=== PATIENT | female | born 1940 | race Caucasian/White ===

== ENCOUNTER → 2018-09-03 | Outpatient (CLI) | payer OTHER ==
[~2018-09-03] VITALS: Ht 165.1 cm; Wt 63.5 kg
[~2018-09-03] MED LIST: ESTRADIOL 1 MG T1 M1 PO; FLUOXETINE HCL40 MG PO; FOLIC ACID1 MG PO; GABAPENTIN800 M1 PO; LISINOPRIL5 MG PO; METHOTREXATE 22.5 MG PO; MILK THISTLE87.5 MG PO; OXYCONTIN10 M1 PO; OXYCONTIN20 M1 PO; PROGESTERONE100 MG PO; SYNTHROID25 MC1 PO; VITAMIN C500 M1 PO; VITAMIN D2000 UNIT PO; XALATAN2.5 M1 OPHTHALMIC; XANAX 0.5 MG0.5 MG PO
[2018-09-03 13:05] VITALS: BP 153/101
--- NOTE | 2018-09-03 13:35 | NUR ---
Pain Clinic Assessment: 1. History of Osteoarthritis: YES History of Rheumatoid Arthritis: Not Applicable 2. Height: 5 ft. 5 in. 165.1 cm. Weight: 140.0 lb. oz. 63.504 kg. Patient's BMI: 23.3 3. Vital Signs: BP: 153/101 Pulse: 79 Resp: 14 Temp: 02 Sat: 98 ECG Mon: 4. Pain Intensity: 0 5. Fall Risk: Dizziness: N Needs help standing or walking: N Fallen in the last 3 months: Y Fall risk comments: 6. Patient on Blood Thinner: None 7. History of Hypertension: Y 8. Opioid Therapy greater than 6 weeks: Y Opiate Contract Signed: 09/03/18 9. Risk Assessment Tool Provided: /MOD 10. Functional Assessment Tool: 11. Recreational Drug Use: Never Drug Type: Tobacco Use: Current Some Day Smoker Tobacco Type: Cigarettes Amount or Packs/day: 2 CIGS OCC How Many Years: Alcohol Use: Yes Frequency: Daily Quant: 1
--- NOTE | 2018-09-09 15:29 | HPC ---
[facility] [address] [address] PAIN MANAGEMENT CONSULTATION Name: NICOLA ANGEL Room #: REG Aj Aramis.#: [id number] Admission: 09/03/18 ������������������ Attend Phys: Patrick Pavon MD Discharge: ������������������ Date of : 42 Report #: [id number] THIS REPORT FOR: //name// CC: [facility] physician/PCP Ivy Pavon DATE OF SERVICE: 09/03/2018 Followup visit for chronic low back pain, post-laminectomy syndrome with radiculopathy to the right leg. This is the first [facility] visit for the patient who I see typically at [facility]. I will be following her progress in our [facility] going forward. She has had a longstanding problem with chronic radiculopathy related to post-laminectomy syndrome. She underwent ultimately placement of a spinal cord stimulator, which did not provide the hope for relief. We have since reverted back to medication management and she is doing well. She is now 77 years of age. 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 She also is an avid sourcing manager. She has found that the medication allows her to be more physical and active and I believe that this also then contributes to her improvement in pain. All medications reviewed and reconciled. For her, I provide medications OxyContin 10 mg once daily and that is taken at noon around and OxyContin 20 mg morning and evening for a total of 50 oxycodone milligrams per day. This equates to an MME of 75. She denies any side effects. She is obviously physically active and grateful for the pain relief that allows her to be so active. She attributes this to her medication and appropriate dosing. She understands the seriousness of the opioid crisis in [facility] and safeguards her medication. She continues to smoke. I counseled her about that today. She has completed an opioid agreement and we reviewed the terms of that agreement. She is at low risk for addiction to moderate with a score of 4/10. She has fallen once in the last 3 months, but would not be considered really a fall risk. It was not a medication or blood pressure related fall. She has some generalized osteoarthritis involving hips, knees and shoulders. PHYSICAL EXAMINATION: She is an attractive 77-year-old, looks younger than her stated age. Her blood pressure is 153/101, heart rate is 79, respirations 14, O2 sat is 98. She is 5 feet 5 inches with a BMI of 23.3. [place] [address] PAIN MANAGEMENT CONSULTATION Name: NICOLA ANGEL Room #: REG [facility] Jorge.#: [id number] Admission: 09/03/18 ������������������ Attend Phys: Patrick Pavon MD Discharge: ������������������ Date of : 42 Report #: [id number] independently from sitting to standing. There is no antalgic feature. No weakness, noted to her gait. There is tenderness across her scar in the back and she has some limited range of motion, but otherwise is doing well. She scores her pain intensity is 0/10. IMPRESSION: 1. Chronic intractable low back pain, post-laminectomy syndrome. 2. Failure of spinal cord stimulation therapy. 3. Management of high risk medications under terms of an opioid agreement. 4. Osteoarthritis, status post bilateral hip replacement. RECOMMENDATIONS: I will continue medication under terms of our written agreement. She will carefully safeguard her medications. I have checked her use of medication into the prescription drug monitoring program and there are no unexpected entries. Followup visit planned in 3 months. ��������������������������������������������� <ELECTRONICALLY SIGNED> ���������������������������������������� By: Patrick Pavon MD ��������������������������������������������� 09/09/18 1529 [id number] Patrick Pavon MD /nt
== END ==
LOC: PAIN 06:50
DX: M54.16 Radiculopathy, lumbar region (principal); M96.1 Postlaminectomy syndrome, not elsewhere classified; G89.4 Chronic pain syndrome; M19.90 Unspecified osteoarthritis, unspecified site; Z96.643 Presence of artificial hip joint, bilateral; Z79.891 Long term (current) use of opiate analgesic

== ENCOUNTER → 2018-09-28 | Outpatient (CLI) | payer OTHER ==
[~2018-09-28] VITALS: Ht 165.1 cm; Wt 65.3 kg
--- NOTE | ~2018-09-28 | HPC ---
[facility] [address] [place] [address] PAIN MANAGEMENT CONSULTATION Name: NICOLA ANGEL Room #: REG MCA PatelDinesh#: [id number] Admission: 09/28/18 ������������������ Attend Phys: Patrick Pavon MD Discharge: ������������������ Date of : 42 Report #: [id number] THIS REPORT FOR: //name// CC: [facility] physician/PCP Patrick Pavon DATE OF SERVICE: 09/28/2018 CHIEF COMPLAINT: New onset left sacral pain after a fall. Two and a half weeks ago, the patient fell. She landed directly on her sacrum. She has been in severe pain ever since. She had a plain film x-ray at her physician's office, which did not show fracture. She called me over the weekend in tears asking if she could work her way into the clinic. I agree to see her today. PHYSICAL EXAMINATION: She is in tears. She is lying on her side. She cannot sit up or lay directly on her sacrum. Her blood pressure 128/87, heart rate 72, respirations 16. She has tenderness located directly over the mid sacrum. She has no leg pain at this time. X-RAY PERFORMED: A CAT scan of the sacrum without contrast. X-ray was completed during her office visit and it showed an acute minimally displaced mid sacral fracture. Bilateral hip replacements are noted as well as extensive degenerative surgical changes in the lumbar spine. IMPRESSION: Sacral fracture, acute. I reviewed the films myself. This is on the anterior table. It should heal nicely and should require no intervention. Pain management as well as all those needed in reassurance the patient that she is experiencing expected pain as a result of her fracture. A caudal epidural injection of bupivacaine was provided for her today for pain relief before discharge. She can continue on medication as she has provided chronic medication under terms of written opioid agreement at relatively high dose OxyContin 20 mg b.i.d. and she has OxyContin 10 mg also utilized midday. Our goal has been to reduce that medication and we will do so after she continues to improve from her sacral fracture. PROCEDURE: Caudal epidural injection. She was taken to fluoroscopic suite. She was placed prone, skin prepped with ChloraPrep. Skin anesthetized over the sacral hiatus. A 22-gauge Tuohy epidural needle was advanced into the sacral hiatus and caudal canal. 0.25 mL of Omnipaque was injected demonstrating an epidurogram in the epidural space extending along the area of her fracture. I then followed it with 1.[address] mL [address] [address] PAIN MANAGEMENT CONSULTATION Name: NICOLA ANGEL Room #: REG [facility]#: [id number] Admission: 09/28/18 ������������������ Attend Phys: Patrick Pavon MD Discharge: ������������������ Date of : 42 Report #: [id number] 0.5% bupivacaine deposited directly in the area of the fracture. She was able to sit in recovery room recliner, reported that her pain score was 0 at discharge. Followup visit planned as needed. We will continue to manage her medications. ��������������������������������������������� ���������������������������������������� By: ��������������������������������������������� 1812 1207 Patrick Pavon MD /nt
[2018-09-28 09:09] VITALS: BP 128/87
--- NOTE | 2018-09-28 09:20 | NUR ---
Pain Clinic Assessment: 1. History of Osteoarthritis: YES History of Rheumatoid Arthritis: Not Applicable 2. Height: 5 ft. 5 in. 165.1 cm. Weight: 144.0 lb. oz. 65.318 kg. Patient's BMI: 24.0 3. Vital Signs: BP: 128/87 Pulse: 72 Resp: 16 Temp: 02 Sat: 99 ECG Mon: 4. Pain Intensity: 8-9 5. Fall Risk: Dizziness: N Needs help standing or walking: Y Fallen in the last 3 months: N Fall risk comments: 6. Patient on Blood Thinner: None 7. History of Hypertension: Y 8. Opioid Therapy greater than 6 weeks: Y Opiate Contract Signed: 09/03/18 9. Risk Assessment Tool Provided: / 10. Functional Assessment Tool: 11. Recreational Drug Use: Never Drug Type: Tobacco Use: Current Some Day Smoker Tobacco Type: Cigarettes Amount or Packs/day: 1/2 How Many Years: 54 Alcohol Use: Yes Frequency: Quant:
== END | disposition home or self-care (01) ==
LOC: PAIN 08:30 → CAT 08:30
DX: S32.10XA Unspecified fracture of sacrum, initial encounter for closed fracture (principal); X58.XXXA Exposure to other specified factors, initial encounter; Y93.9 Activity, unspecified; Y92.89 Other specified places as the place of occurrence of the external cause; Y99.9 Unspecified external cause status; M54.5 Low back pain; G31.89 Other specified degenerative diseases of nervous system

== ENCOUNTER → 2019-01-11 | Outpatient (CLI) | payer OTHER ==
[~2019-01-11] VITALS: Ht 165.1 cm; Wt 61.6 kg
[2019-01-11 11:01] VITALS: BP 105/69
--- NOTE | 2019-01-11 11:22 | NUR ---
Pain Clinic Assessment: 1. History of Osteoarthritis: YES History of Rheumatoid Arthritis: Not Applicable 2. Height: 5 ft. 5 in. 165.1 cm. Weight: 135.8 lb. oz. 61.598 kg. Patient's BMI: 22.6 3. Vital Signs: BP: 105/69 Pulse: 85 Resp: 14 Temp: 02 Sat: 100 ECG Mon: 4. Pain Intensity: 0 5. Fall Risk: Dizziness: N Needs help standing or walking: N Fallen in the last 3 months: Y Fall risk comments: 6. Patient on Blood Thinner: None 7. History of Hypertension: Y 8. Opioid Therapy greater than 6 weeks: Y Opiate Contract Signed: 09/03/18 9. Risk Assessment Tool Provided: 10. Functional Assessment Tool: 11. Recreational Drug Use: Never Drug Type: Tobacco Use: Current Every Day Smoker Tobacco Type: Cigarettes Amount or Packs/day: 0.5 How Many Years: 50 Alcohol Use: Yes Frequency: Daily Quant: WINE ONE A DAY
--- NOTE | 2019-01-12 13:33 | HPC ---
[facility] [address] [place] [address] PAIN MANAGEMENT CONSULTATION Name: NICOLA ANGEL [facility] [id number] Admission: 01/11/19 ������������������ Attend Phys: Deyanira Cummings Discharge: ������������������ Date of : 42 Report #: [id number] THIS REPORT FOR: //name// CC: Deyanira Cummings [facility] physician/PCP DATE OF SERVICE: 01/11/2019 CHIEF COMPLAINT: Sacral pain, chronic low back pain, post-laminectomy syndrome. HISTORY OF PRESENT ILLNESS: This is a very pleasant 78-year-old female, who returns to the pain clinic today for refill of her medications that she uses to take for her ongoing low back pain. She informs me that her pain score is 0 today out of 10. Her pain that she does experience before she takes her medications is across her lower back. She feels that her sacral pain from her recent fracture has healed and is recovering. She tells me she has worse pain when she is bending or changing positions from sitting to standing and walking, though her pain medication greatly improves her quality of life and her activities. She tells me some days she is not needing her OxyContin 10 mg in the middle of the day. She is able to get by with OxyContin 20 mg b.i.d. She does have some problems with constipation, associated with her pain pills. ALLERGIES: CODEINE and FENTANYL. LIST OF MEDICATIONS: Gabapentin 800 mg 4 times a day, OxyContin 20 mg b.i.d., OxyContin 10 mg at noontime, vitamin D, vitamin C, milk thistle, Xanax 0.5 mg daily, Synthroid 25 mcg daily, Paxil 40 mg daily, methotrexate weekly, folic acid, lisinopril 5 mg daily, progesterone, estradiol 3 times a week and Xalatan eyedrops. PQRS: 1. She has history of osteoarthritis as well as rheumatoid arthritis. 2. Height is 5 feet 5 inches, weight is 133, BMI is 22. 3. Vital signs, BP 105/69, pulse is 85, respirations 14, oxygen sat is 100, pain score 0. 4. Fall risk. Denies dizziness, does not need help walking or standing, has fallen in the last 3 months. 5. The patient is not on any blood thinners, does take medicine for hypertension. 6. Opioid therapy is greater than 6 weeks; therefore, an opioid signed contract is on the chart. Her risk assessment is moderate. Her functional assessment is 0/70. 7. Recreational drug use, she denies. She is a current smoker about half a pack of cigarettes a day and she does have alcoholic beverages one drink a day. According to the prescription monitoring system, the patient is filling [address] [address] PAIN MANAGEMENT CONSULTATION Name: MARIO ALBERTOBrandonNICOLA Room #: REG MAC Juarez#: [id number] Admission: 01/11/19 ������������������ Attend Phys: Deyanira Cummings Discharge: ������������������ Date of : 42 Report #: [id number] appropriately for her medications and is due to fill those today. PHYSICAL EXAMINATION: GENERAL: This is alert and orientated 78-year-old female who appears her stated age, placing her current pain score today at 0. HEENT: Normocephalic, atraumatic. Extraocular eye muscles are intact. Mucous membranes are moist. MUSCULOSKELETAL: The patient is able to move from sitting to standing independently. She has no antalgic features. She has tenderness across her lumbar spine and has limited range of motion due to previous surgeries. Her lower extremity strength judged to be 5/5 bilaterally. IMPRESSION: 1. Chronic intractable low back pain, post-laminectomy syndrome. 2. Failure spinal cord stimulator therapy. 3. Osteoarthritis. 4. Status post bilateral hip replacement. 5. Rheumatoid arthritis. 6. Management of high risk medications under terms of written opioid agreement. 7. Recent sacral fracture. We reviewed the fact that opiate medications are being used to provide analgesia adequate to support activities of daily living, not attempting to achieve a specific pain score on the 0-10 Visual Analog Scale. The current opiate medications are providing sufficient analgesia to allow the patient to participate in activities of daily living. The patient is not exhibiting any aberrant behavior suggestive of drug diversion. The patient is not having any adverse reactions to medications. The patient is not suffering from daytime somnolence or mental acuity changes. The patient is managing opiate-induced constipation with appropriate [id number] agents and dietary considerations. The patient was counseled on concern for caution with operating a motor vehicle while using opiate medications. A physical exam was performed and the patient's functional status was evaluated. All patients with back pain were advised against the bed rest greater than 4 days and were advised to return to normal activities. Pain score assessment was noted and the treatment plan was reviewed with the patient. All current medications, both prescribed and OTC were reviewed and reconciled on the electronic medical record. Tobacco screening was accomplished and smoking cessation was advised when indicated. BMI was noted and diet/exercise modification was recommended for all patients following outside normal parameters. I reviewed with the patient today their responsibilities to safeguard prescription medications, reviewed their responsibility to utilize medications only as prescribed by the physician. They are to seek and receive pain [address] [address] PAIN MANAGEMENT CONSULTATION Name: NICOLA ANGEL [id number] Admission: 01/11/19 ������������������ Attend Phys: Deyanira Cummings Discharge: ������������������ Date of : 42 Report #: [id number] medications only from 1 physician group ( [facility]). They are to use 1 pharmacy and keep the clinic informed if they change pharmacies. Their responsibilities include making followup visits in a timely fashion and to avoid abrupt discontinuation of medication usage. Their responsibilities further include bringing their medications (bottles from the pharmacy with residual pills) to the visit for possible confirmation of pill counts and the patient understands it is their responsibility to submit to random drug screens to ensure both that the medications prescribed are present, and that no other controlled substances are present. All prescriptions provided today were generated electronically. PLAN: 1. We discussed treatment options with the patient today. The patient tells me she is doing quite well on her current medication regimen, in fact sometimes she does not require her OxyContin 10 mg tablets at noon time and does have several left over from previous prescriptions; therefore, it was decided that we would give her 2 prescriptions of the 10 mg OxyContin. The patient instructed to take the lowest most effective dose, so; therefore, #30 prescription given for today and 8-week release. If the patient finds that she is not needing this on a daily basis, she is to bring back the remainder script and we will discard it. 2. OxyContin 20 mg, #60 given for today, 4-week and 8-week release. 3. The patient was telling me that she does have problems with constipation. She had taken MiraLax in the past that did cause some diarrhea if she takes it every day as well as Senokot. Recently she has tried Ex-Lax, encouraged her to drink plenty of liquids when taking stool softeners or to try the stool softener every other day and by increasing her liquid intake, she may not need a stool softener daily. The patient verbalizes understanding and will try these different techniques. 4. We will call the pharmacy, [facility], to change her directions for her gabapentin. She does take this 800 mg 4 times a day. They are giving her at 3 times a day. 5. The patient is seen in collaboration today with Dr. Patrick Pavon who collaborated care. ��������������������������������������������� <ELECTRONICALLY SIGNED> ���������������������������������������� By: Deyanira Cummings ��������������������������������������������� 01/12/19 1333 1321 [id number] Deyanira Cummings /nt
== END ==
LOC: PAIN 06:54
DX: S32.10XA Unspecified fracture of sacrum, initial encounter for closed fracture (principal); M54.5 Low back pain; M96.1 Postlaminectomy syndrome, not elsewhere classified; M19.90 Unspecified osteoarthritis, unspecified site; Z96.643 Presence of artificial hip joint, bilateral; Z79.891 Long term (current) use of opiate analgesic; X58.XXXA Exposure to other specified factors, initial encounter; Y93.89 Activity, other specified; Y92.89 Other specified places as the place of occurrence of the external cause; Y99.8 Other external cause status

== ENCOUNTER → 2019-04-29 | Outpatient (CLI) | payer OTHER ==
[~2019-04-29] MED LIST changes: +MEDROLDOSEPACK PO
--- NOTE | 2019-04-29 13:57 | NUR ---
Pain Clinic Assessment: 1. History of Osteoarthritis: B/L HANDS B/L ANKLES B/L HIPS SPINE History of Rheumatoid Arthritis: Not Applicable 2. Height: ft. in. cm. Weight: lb. oz. kg. Patient's BMI: 3. Vital Signs: BP: Pulse: Resp: Temp: 02 Sat: ECG Mon: 4. Pain Intensity: 4-5 5. Fall Risk: Dizziness: N Needs help standing or walking: N Fallen in the last 3 months: N Fall risk comments: 6. Patient on Blood Thinner: None 7. History of Hypertension: Y 8. Opioid Therapy greater than 6 weeks: Y Opiate Contract Signed: 09/03/18 9. Risk Assessment Tool Provided: 10. Functional Assessment Tool: 11. Recreational Drug Use: Never Drug Type: Tobacco Use: Current Every Day Smoker Tobacco Type: Cigarettes Amount or Packs/day: 1 PACK How Many Years: Alcohol Use: Yes Frequency: Daily Quant: 1 DRINK
--- NOTE | 2019-04-30 12:32 | HPC ---
[facility] [address] [place] [address] PAIN MANAGEMENT CONSULTATION Name: NICOLA ANGEL Room #: REG Aj DineshDinesh#: [id number] Admission: 04/29/19 Attend Phys: Deyanira Cummings Discharge: Date of : 44 Report #: [id number] THIS REPORT FOR: //name// CC: Deyanira Cummings [facility] physician/PCP Patrick Pavon MD DATE OF SERVICE: 04/29/2019 CHIEF COMPLAINT: Chronic low back pain, post-laminectomy syndrome, left radiculopathy, left lumbar radiculopathy. HISTORY OF PRESENT ILLNESS: This is a very pleasant 78-year-old female, who returns to the pain clinic today for refill of her medications, though she does report she was working in her yard about 3 weeks ago and has had ongoing low back radicular pain into her left buttock, occasionally it does go into her left posterior leg to her foot very rarely into her right buttock. She has tried heat and ice with no relief. She had tapered down her OxyContin to 20 mg b.i.d. From her previous dose, she did increase this medication taking 10 mg in the midday though that was not beneficial, so she has since stopped that midday dose again. She is wondering about a possible epidural, which has been very beneficial in helping her relieve pain in the past from Dr. Patrick Pavon. The patient does report her pain score is 4-5 today. It is a constant, shooting, throbbing pain that is worse with any activity, even lying down. Her medications have been somewhat beneficial in controlling some of her pain. ALLERGIES: CODEINE AND FENTANYL. CURRENT LIST OF MEDICINES: OxyContin 20 mg b.i.d., vitamin D, vitamin C, gabapentin 800 q.i.d., milk thistle, Xanax 0.5 mg daily, Synthroid 25 mcg daily, Prozac 40 mg daily, methotrexate 2.5 mg weekly, folic acid daily, Zestril 5 mg daily, progesterone 100 mg daily, Estrace 1 mg weekly. PQRS: 1. She has osteoarthritic changes in her hands, ankle, spine and is being treated for differential arthritis. 2. Height is 5 feet 5 inches, weight is 133, BMI is 22. 3. Vital signs unsure. Pain is 4/5. 4. Fall risk. Denies dizziness, does not need help walking or standing, has not fallen in the last 3 months. 5. The patient is not on any blood thinners, but does take medicine for hypertension. 6. Opioid therapy is greater than 6 weeks; therefore, an opioid signed contract is on the chart. 7. Her risk assessment is moderate. 8. Functional assessment is 0/70. [address] [address] PAIN MANAGEMENT CONSULTATION Name: NICOLA ANGEL Danial Room #: REG CLAj Juarez#: [id number] Admission: 04/29/19 Attend Phys: Deyanira Cummings Discharge: Date of : 42 Report #: [id number] 9. Recreational drug use, she denies. She is a current smoker of 1 pack of cigarettes a day and occasionally drinks alcohol. According to the prescription monitoring system, the patient is filling appropriately for her medications. She does safeguard her meds at all times. PHYSICAL EXAMINATION: GENERAL: This is an alert and orientated 78-year-old female who appears her stated age, placing her current pain score at 4-5/10. She is a good historian. HEENT: Normocephalic, atraumatic. Extraocular eye muscles are intact. Mucous membranes are moist. MUSCULOSKELETAL: The patient is able to move from sitting to standing position independently, though slowly due to pain. She is walking with a slightly antalgic gait today. She has tenderness in her lumbar spine that is radiating into her left buttock down the posterior left leg following the L5-S1 dermatomal distribution with occasional shooting, throbbing pain. Lower extremity strength judged to be 5/5 in all major muscle groups. IMPRESSION: 1. Lumbar radiculopathy following the L5-S1 dermatomal distribution. 2. Chronic intractable low back pain, post-laminectomy syndrome. 3. Failure of spinal cord stimulator therapy. 4. Osteoarthritis. 5. Status post bilateral hip replacement. 6. Differential arthritis. 7. Management of high risk medications under terms of written opioid agreement. We reviewed the fact that opiate medications are being used to provide analgesia adequate to support activities of daily living, not attempting to achieve a specific pain score on the 0-10 Visual Analog Scale. The current opiate medications are providing sufficient analgesia to allow the patient to participate in activities of daily living. The patient is not exhibiting any aberrant behavior suggestive of drug diversion. The patient is not having any adverse reactions to medications. The patient is not suffering from daytime somnolence or mental acuity changes. The patient is managing opiate-induced constipation with appropriate [id number] agents and dietary considerations. The patient was counseled on concern for caution with operating a motor vehicle while using opiate medications. A physical exam was performed and the patient's functional status was evaluated. All patients with back pain were advised against the bed rest greater than 4 days and were advised to return to normal activities. Pain score assessment was noted and the treatment plan was reviewed with the patient. All current medications, both prescribed and OTC were reviewed and reconciled on the electronic medical record. Tobacco screening was accomplished and smoking cessation was advised when indicated. BMI was noted and diet/exercise [facility] [address] [place] [address] PAIN MANAGEMENT CONSULTATION Name: NICOLA ANGEL [id number] Admission: 04/29/19 Attend Phys: Deyanira Cummings Discharge: Date of : 42 Report #: [id number] modification was recommended for all patients following outside normal parameters. I reviewed with the patient today their responsibilities to safeguard prescription medications, reviewed their responsibility to utilize medications only as prescribed by the physician. They are to seek and receive pain medications only from 1 physician group ( [facility]). They are to use 1 pharmacy and keep the clinic informed if they change pharmacies. Their responsibilities include making followup visits in a timely fashion and to avoid abrupt discontinuation of medication usage. Their responsibilities further include bringing their medications (bottles from the pharmacy with residual pills) to the visit for possible confirmation of pill counts and the patient understands it is their responsibility to submit to random drug screens to ensure both that the medications prescribed are present, and that no other controlled substances are present. All prescriptions provided today were generated electronically. PLAN: 1. We discussed treatment options with the patient today. I believe that a lumbar epidural steroid injection may benefit this patient due to her recent injury from gardening with her radicular symptoms. Unfortunately, Dr. Pavon is not available to perform this until 05/10/2019. Since the patient is having increased significant pain, I will offer her a Medrol Dosepak to take until that time to see if that is beneficial in reducing some of her pain. The patient verbalizes understanding. She will take it as directed and we will make an appointment for an epidural if it is not beneficial. 2. The patient was able to wean down off her OxyContin 10 mg midday dose taking it only 20 mg b.i.d. We will continue her at that current level of medicine, this is 60 morphine mEq according to the CDC guidelines. We transmitted 60 pills of OxyContin 20mg to the [facility] pharmacy for today 4-week and 8-week release. 3. The patient does continue on gabapentin that she gets that through [facility]. She is not needing refills of that medicine today. 4. The patient is seen in collaboration with Dr. Patrick Pavon who did see the patient as well. The patient will return for a lumbar epidural steroid injection on 05/10/2019. <ELECTRONICALLY SIGNED> By: Deyanira Cmumings 04/30/19 1232 [id number] Deyanira Cummings /joseph
== END ==
LOC: PAIN 07:03
DX: M96.1 Postlaminectomy syndrome, not elsewhere classified (principal); M54.16 Radiculopathy, lumbar region; M19.90 Unspecified osteoarthritis, unspecified site; Z96.643 Presence of artificial hip joint, bilateral; Z79.891 Long term (current) use of opiate analgesic

== ENCOUNTER → 2019-05-10 | Outpatient (CLI) | payer OTHER ==
[~2019-05-10] VITALS: Ht 165.1 cm; Wt 64.3 kg
[~2019-05-10] MED LIST changes: +ZANAFLEX4 M2 PO
[2019-05-10 15:20] VITALS: BP 111/76
--- NOTE | 2019-05-10 15:47 | NUR ---
Pain Clinic Assessment: 1. History of Osteoarthritis: B/L HANDS B/L ANKLES B/L HIPS SPINE History of Rheumatoid Arthritis: Not Applicable 2. Height: 5 ft. 5 in. 165.1 cm. Weight: 141.8 lb. oz. 64.320 kg. Patient's BMI: 23.6 3. Vital Signs: BP: 111/76 Pulse: 95 Resp: 14 Temp: 02 Sat: 100 ECG Mon: 4. Pain Intensity: 10 5. Fall Risk: Dizziness: N Needs help standing or walking: Y Fallen in the last 3 months: Y Fall risk comments: 6. Patient on Blood Thinner: None 7. History of Hypertension: Y 8. Opioid Therapy greater than 6 weeks: Y Opiate Contract Signed: 09/03/18 9. Risk Assessment Tool Provided: 4/ 10. Functional Assessment Tool: 11. Recreational Drug Use: Never Drug Type: Tobacco Use: Current Every Day Smoker Tobacco Type: Amount or Packs/day: 1/2 How Many Years: 50 Alcohol Use: Yes Frequency: Quant:
== END | disposition home or self-care (01) ==
LOC: PAIN 06:57
DX: M54.16 Radiculopathy, lumbar region (principal); M96.1 Postlaminectomy syndrome, not elsewhere classified; G89.29 Other chronic pain; F17.210 Nicotine dependence, cigarettes, uncomplicated; Z98.890 Other specified postprocedural states; Z79.891 Long term (current) use of opiate analgesic; Z79.899 Other long term (current) drug therapy; Z88.8 Allergy status to other drugs, medicaments and biological substances

== ENCOUNTER → 2019-05-20 | Outpatient (CLI) | payer OTHER ==
[~2019-05-20] VITALS: Ht 165.1 cm; Wt 62.6 kg
[~2019-05-20] MED LIST changes: +HYDROCODON-ACE1 EAC7 PO; +MS CONTIN30 MG PO
[2019-05-20 11:06] VITALS: BP 136/90
--- NOTE | 2019-05-20 11:19 | NUR ---
Pain Clinic Assessment: 1. History of Osteoarthritis: B/L HANDS B/L ANKLES B/L HIPS SPINE History of Rheumatoid Arthritis: Not Applicable 2. Height: 5 ft. 5 in. 165.1 cm. Weight: 138.0 lb. oz. 62.596 kg. Patient's BMI: 23.0 3. Vital Signs: BP: 136/90 Pulse: 82 Resp: 16 Temp: 02 Sat: 97 ECG Mon: 4. Pain Intensity: 10 5. Fall Risk: Dizziness: N Needs help standing or walking: Y Fallen in the last 3 months: N Fall risk comments: 6. Patient on Blood Thinner: None 7. History of Hypertension: Y 8. Opioid Therapy greater than 6 weeks: Y Opiate Contract Signed: 09/03/18 9. Risk Assessment Tool Provided: 4/ 10. Functional Assessment Tool: 11. Recreational Drug Use: Never Drug Type: Tobacco Use: Current Every Day Smoker Tobacco Type: Cigarettes Amount or Packs/day: 0.5 How Many Years: 50 Alcohol Use: Yes Frequency: Daily Quant: WINE 1 A DAY VODKA ALSO
--- NOTE | 2019-05-21 09:23 | HPC ---
[facility] [place] [address] PAIN MANAGEMENT CONSULTATION Name: NICOLA ANGEL Room #: REG Aj Larry#: [id number] Admission: 05/20/19 Attend Phys: Deyanira Cummings Discharge: Date of : 44 Report #: [id number] THIS REPORT FOR: //name// CC: Deyanira Pavon MD DATE OF SERVICE: 05/20/2019 CHIEF COMPLAINT: Chronic low back pain, post-laminectomy syndrome, lumbar radiculopathy. HISTORY OF PRESENT ILLNESS: The patient returns today for a visit to discuss medication management. She recently had an epidural steroid injection from Dr. Patrick Pavon on 04/29/2019. She reports that her pain has been increased significantly since that time, rating it at 10/10, is located in her lower back that radiates down her bilateral legs and buttocks following the L5-S1 dermatomal distribution. She reports that she had increased her OxyContin use back to 20 mg b.i.d. and taking 10 mg in the middle of the day that she had at home from previous use and that has been non-beneficial as well. The patient is here to discuss possible opioid rotation or other options that we may have to offer her. She is seeing her surgeon Dr. Vanegas next week. In the meantime, she reports that she is having a significant time walking with this pain. She is also suffering from some constipation. She uses Metamucil for this. ALLERGIES: CODEINE AND FENTANYL. CURRENT LIST OF MEDICATIONS: Tizanidine p.r.n., OxyContin 20 mg b.i.d., OxyContin 10 in the day, gabapentin 800 mg q.i.d., vitamin D, vitamin C, milk thistle extract, Xanax, Synthroid, fluoxetine, methotrexate, folic acid, lisinopril, progesterone, estradiol. PQRS: 1. The patient has arthritic changes in her hands, ankle, spine and also being treated for differential rheumatoid arthritis, on methotrexate. 2. Height is 5 feet 5 inches, weight is 138, BMI is 23. 3. Vital signs 136/90, pulse is 82, respirations 16, oxygen sat is 97. 4. Pain score is 10/10. 5. Denies dizziness. Does need help walking. She is in a wheelchair today, has not fallen in the last 3 months. 6. The patient is not on any blood thinners, but does take medicine for hypertension. 7. Opioid therapy is greater than 6 weeks; therefore, an opioid signed contract is on the chart. Her risk assessment is moderate. Functional assessment 66/70. 8. Recreational drug use, she denies. She is [place] [address] PAIN MANAGEMENT CONSULTATION Name: NICOLA ANGEL Danial Room #: REG MAC Juarez#: [id number] Admission: 05/20/19 Attend Phys: Deyanira Cummings Discharge: Date of : 42 Report #: [id number] pack a day and also drinks wine and vodka nightly. According to the prescription monitoring system, the patient filled her OxyContin a week and a half ago when she was previously here. PHYSICAL EXAMINATION: GENERAL: This is alert and orientated female who appears her stated age, placing her current pain score at 10/10. HEENT: Normocephalic, atraumatic. Extraocular eye muscles are intact. Mucous membranes are moist. ABDOMEN: Slight tenderness. Bowel sounds present. MUSCULOSKELETAL: Bilateral positive straight raising test. She has pain from her lumbosacral area that radiates down her L5-S1 dermatomal distribution following the L5-S1 dermatomal distribution greater on the left leg. Lower extremity strength judged to be 5/5 in all major muscle groups. She has difficulty walking, which elicits increased pain in a wheelchair presently today. IMPRESSION: 1. Lumbar radiculopathy following the L5-S1 dermatomal distribution. 2. Chronic intractable low back pain, post-laminectomy syndrome. 3. Failure of spinal cord stimulator therapy. 4. Osteoarthritis. 5. Status post bilateral hip replacements. 6. Differential arthritis. 7. Management of high risk medications under terms of written opioid agreement. PLAN: 1. We discussed treatment options with the patient today. The patient has found the caudal epidural that Dr. Patrick Pavon performed a week and a half ago not beneficial in controlling any of her pain. She has not gone to the Emergency Room but made an appointment for us to see her today. We discussed current regimen of medications and have suggested opiate rotation to see if this better helps her pain. The patient verbalizes understanding and is willing to try. 2. Scripts given today for MS Contin 30 mg b.i.d., quantity 60 and hydrocodone 5/325, #90. This will place the patient at 75 morphine mEq a day, a slight increase from her OxyContin 20 mg b.i.d. 3. The patient encouraged to use heat and ice and alternating those to see if those are beneficial as well. 4. The patient encouraged to decrease her smoking. She recently has increased her usage. We did discuss how that affects her pain. The patient will try to decrease her smoking habit. 5. The patient is going to follow up with Dr. Vanegas next week, she will call to report his findings with her. 6. Appointment made for followup for 06/17/2018 for 1 month of these [facility] [place] [address] [address] PAIN MANAGEMENT CONSULTATION Name: NICOLA ANGEL Room #: REG CL Larry#: [id number] Admission: 05/20/19 Attend Phys: Deyanira Cummings Discharge: Date of : 44 Report #: [id number] medications. We did void her OxyContin prescriptions at the pharmacy. The patient is seen today in collaboration with Dr. Patrick Pavon. <ELECTRONICALLY SIGNED> By: Deyanira Cummings 05/21/19 0923 1235 [id number] Deyanira Cummings /nt
== END ==
LOC: PAIN 06:54
DX: M96.1 Postlaminectomy syndrome, not elsewhere classified (principal); M54.16 Radiculopathy, lumbar region; M19.90 Unspecified osteoarthritis, unspecified site; Z79.899 Other long term (current) drug therapy

== ENCOUNTER → 2019-06-17 | Outpatient (CLI) | payer OTHER ==
[~2019-06-17] VITALS: Ht 165.1 cm; Wt 60.3 kg
[~2019-06-17] MED LIST changes: +NARCAN4 MG NARES
[2019-06-17 11:25] VITALS: BP 114/75
--- NOTE | 2019-06-18 07:28 | HPC ---
[facility] [address] [place] [address] PAIN MANAGEMENT CONSULTATION Name: NICOLA ANGEL [facility]: [facility] [id number] Admission: 06/17/19 Attend Phys: Deyanira Cummings Discharge: Date of : 44 Report #: [id number] THIS REPORT FOR: //name// CC: Deyanira Pavon MD DATE OF SERVICE: 06/17/2019 CHIEF COMPLAINT: Chronic low back pain, post-laminectomy syndrome, lumbar radiculopathy. HISTORY OF PRESENT ILLNESS: The patient returns with her today to discuss a recent hospitalization at [facility]. The patient reports that she was having a very bad painful day, had seen her surgeon, Dr. Hendrix and had several x-rays done. When she got home, she was in significant amount of pain as well as having a panic attack, she did take a Xanax, then per her 's report, he saw her take two more Xanax. The patient laid down. Per the 's report, he went to check on her several hours later, the patient had vomitted and was difficult to arouse. He did call the EMS. She was taken to [facility], was on the ventilator for 4 days. He believes it was an overdose of her Xanax. The patient tells me she cannot remember any of this. She then went to a rehab facility for her hospitalization; it was not a substance abuse rehabilitation. The patient was discharged on the and has been at home taking her prescribed medication of MS Contin 30 mg twice a day as well as Xanax 0.5 mg, the patient reports 2 tablets total since this hospitalization of Xanax. She is here today to discuss pain management options. Per her report, she is having no pain when she is sitting, but her pain is a 4/10 when she is walking. She reports she is trying to avoid surgery and would like to start physical therapy as she feels like she is very weak in her legs since this hospitalization. She continues to have low back pain and bilateral leg pain. The patient reports that she has had less panic attacks since she was hospitalized. She has also quit smoking since she was in the hospital. She is wearing a Nicoderm patch currently. She believes she has about two weeks' left of medications at home. ALLERGIES: CODEINE AND FENTANYL. CURRENT LIST OF MEDICATIONS: Hydrocodone 5/325, MS Contin 30 mg b.i.d., Zanaflex, gabapentin, vitamin D, vitamin C, milk thistle extract, Xanax 0.5-1 mg daily, Synthroid, fluoxetine, methotrexate, folic acid, progesterone, estradiol. [address] [address] PAIN MANAGEMENT CONSULTATION Name: NICOLA ANGEL Danial Room #: REG CLAj Juarez#: [id number] Admission: 06/17/19 Attend Phys: Deyanira Cummings Discharge: Date of : 44 Report #: [id number] PQRS: 1. She has arthritic changes in her hands, ankle, spine and also being treated for differential rheumatoid arthritis, on methotrexate. 2. Height is 5 feet 5 inches, weight is 133, BMI is 22. 3. Vital signs 114/75, pulse is 105, respirations 15, oxygen sat is 97. 4. Pain score is 0-4. 5. Denies dizziness. Does need help walking. She is in a wheelchair presently today. 6. The patient is not on any blood thinners, but does take medicine for hypertension. 7. Opioid therapy is greater than 6 weeks; therefore, an opioid signed contract is on the chart. Her risk assessment is moderate and functional assessment is 66/70. 8. Recreational drug use, she denies. She is a former smoker, just recently quit in the last 2 weeks and does drink alcohol. According to the prescription monitoring system, the patient should be due to fill her medications this weekend, but since the recent hospitalization, she does have 2 weeks of medication left. According to the CDC guidelines, her morphine milliequivalent is 90 MME per day. PHYSICAL EXAMINATION: GENERAL: This is an alert and orientated female who appears her stated age, placing her current pain score to 0-4/10. HEENT: Normocephalic, atraumatic. Extraocular eye muscles are intact. Mucous membranes are moist. MUSCULOSKELETAL: Pain in her lumbosacral area that radiates down her L5-S1 dermatomal distribution in the left greater than the right. Lower extremity strength judged to be 5/5, but deconditioned. She has difficulty walking, which increases her pain. Presently in a wheelchair today. IMPRESSION: 1. Lumbar radiculopathy following the L5-S1 dermatomal distribution. 2. Chronic intractable low back pain, post-laminectomy syndrome. 3. Failed spinal cord stimulator therapy. 4. Osteoarthritis. 5. Recent hospitalization with intubation, possible overdose of benzodiazepines. 6. Status post bilateral hip replacement. 7. Differential arthritis. 8. Management of high risk medications under terms of written opioid agreement including polypharmacy with benzodiazepine use. PLAN: 1. We discussed treatment options for greater than 40 minutes today. [facility] [address] [place] [address] PAIN MANAGEMENT CONSULTATION Name: NICOLA ANGEL Room #: REG [facility]#: [id number] Admission: 06/17/19 Attend Phys: Deyanira Cummings Discharge: Date of : 44 Report #: [id number] Librado was present through part of this discussion. We did discuss the patient's recent hospitalization with potential overdose from her benzodiazepine. We explained to the patient that we will need to see some type of counselor. I did call [facility] to set up an appointment. The patient instructed to call them and schedule an appointment prior to coming back to see us in 2 weeks. 2. We will prescribe a Narcan prescription. I explained to the how this is given in case of another potential overdose. The patient explains that she does not feel that she is going to need that medication. She feels that she took her medication because she was having a significant panic attack and now feels like she is in a better place. She currently does have alprazolam at home. We encouraged her to put it away, taking it very sparingly and splitting the dose in half and also to discuss this with her primary care doctor who we also called today. 3. The patient encouraged to take her MS Contin 30 mg twice a day, no additional tablets and to take her hydrocodone very sparingly. We may potentially start her on Suboxone, which does have Nalaxone associated with the buprenorphine. The patient will return in 2 weeks, so we can evaluate how she is doing and her visit with a counselor as well as her primary care doctor. 4. Script also given for the patient for physical therapy. The patient and family think that she may possibly be starting home therapy, but if that is not started in the next week, the patient will work with a therapist on strengthening activities. 5. Dr. Patrick Pavon, as I stated, was present for part of the meeting today and collaborated care. The patient will be seen on 07/05/2019 to continue our counseling regarding her possible overdose and discussion of opioid medications. <ELECTRONICALLY SIGNED> By: Deyanira Cummings 06/18/19 0728 1432 [id number] Deyanira Cummings /nt
== END ==
LOC: PAIN 06:47
DX: M54.16 Radiculopathy, lumbar region (principal); M19.90 Unspecified osteoarthritis, unspecified site; Z79.899 Other long term (current) drug therapy; Z79.891 Long term (current) use of opiate analgesic

== ENCOUNTER → 2019-07-01 | Outpatient (CLI) | payer OTHER ==
[~2019-07-01] VITALS: Ht 165.1 cm; Wt 56.1 kg
[2019-07-01 13:06] VITALS: BP 142/88
--- NOTE | 2019-07-01 13:30 | NUR ---
Pain Clinic Assessment: 1. History of Osteoarthritis: B/L HANDS B/L ANKLES B/L HIPS SPINE History of Rheumatoid Arthritis: Not Applicable 2. Height: 5 ft. 5 in. 165.1 cm. Weight: 123.6 lb. oz. 56.064 kg. Patient's BMI: 20.6 3. Vital Signs: BP: 142/88 Pulse: 89 Resp: 14 Temp: 02 Sat: 99 ECG Mon: 4. Pain Intensity: 0 SITTING 7 WALKING 5. Fall Risk: Dizziness: N Needs help standing or walking: N Fallen in the last 3 months: N Fall risk comments: 6. Patient on Blood Thinner: None 7. History of Hypertension: Y 8. Opioid Therapy greater than 6 weeks: Y Opiate Contract Signed: 09/03/18 9. Risk Assessment Tool Provided: 4/ 10. Functional Assessment Tool: 11. Recreational Drug Use: Never Drug Type: Tobacco Use: Former Smoker Tobacco Type: Amount or Packs/day: How Many Years: Alcohol Use: Yes Frequency: Quant:
--- NOTE | 2019-07-05 15:50 | HPC ---
[facility] [place] [address] [address] PAIN MANAGEMENT CONSULTATION Name: NICOLA ANGEL Room #: REG [facility] Larry#: [id number] Admission: 07/01/19 Attend Phys: Deyanira Cummings Discharge: Date of : 44 Report #: [id number] THIS REPORT FOR: //name// CC: Deyanira Pavon MD DATE OF SERVICE: 07/01/2019 CHIEF COMPLAINT: Chronic low back pain, post-laminectomy syndrome, lumbar radiculopathy. HISTORY OF PRESENT ILLNESS: This is a 78-year-old female, who returns to the pain clinic today for followup from her recent hospitalization of an overdose of her medications. She reports today that she did discuss her case with [facility] advocate. Per the records, she reports that she was septic and she entered the hospital as well as having too much medication in her system. She feels that that may be in part why she does not remember taking as many pills because she had an infection that was making her confused. I explained to the patient that may be, but we still need to be careful with how much medicine that she is taking. Her did witness her taking too many pills and there is a report that she called and stating that she had taken more pills than prescribed. The patient verbalizes understanding. She does want to clear the air on what she is remembering. The patient is reporting a pain score of 0/10 when she is sitting, but 7/10 when she is walking in her low back and bilateral legs. It is a constant, shooting, sharp pain. Her medications are beneficial as well as lying down. She reports that she is seeing occupational therapy and physical therapy in the home. She feels that her occupational therapist has been very beneficial in helping her learn to control some of her movements and alter ways that do decrease her pain. She feels that she still has significant weakness and would like to have outpatient therapy and home therapy is completed. She has returned physical therapy script today and would like it rewritten in July when she has been released from home therapy. The patient is reporting she is taking 2 hydrocodone a day maximum and is taking her morphine 30 mg twice a day as prescribed. She continues to take Xanax 1 pill at bedtime. This is prescribed from her primary care doctor. Today, she is out of her medications and would like refills. ALLERGIES: CODEINE and FENTANYL. CURRENT LIST OF MEDICATIONS: Naloxone as needed for emergencies, hydrocodone 5/325 b.i.d., MS Contin 30 mg b.i.d., tizanidine p.r.n., gabapentin [address] [place] [address] PAIN MANAGEMENT CONSULTATION Name: NICOLA ANGEL Danial Room #: REENA Juarez#: [id number] Admission: 07/01/19 Attend Phys: Deyanira Cummings Discharge: Date of : 42 Report #: [id number] q.i.d., vitamin D, vitamin C, milk thistle, Xanax 0.5 mg at bedtime, Synthroid, fluoxetine, methotrexate, folic acid, progesterone, and estradiol. PQRS: 1. She has osteoarthritis in her hands, ankles, hips, and spine. She is also being treated for differential rheumatoid arthritis, on methotrexate. 2. Height is 5 feet 5 inches, weight is 123, BMI is 20. 3. Vital signs: Blood pressure 142/88, pulse is 89, respirations 14, oxygen sat is 99. 4. Pain score is 0/10 when sitting, 7/10 when ambulating. She is in her wheelchair presently today. 5. The patient denies dizziness, does not need help walking or standing, has not fallen in the last 3 months. 6. The patient is not on any blood thinners, but does take medicine for hypertension. Opioid therapy is greater than 6 weeks; therefore, an opioid signed contract is on the chart. Her risk assessment is moderate. Functional assessment 66/70. 7. Recreational drug use, she denies. She is a former smoker, currently wearing a nicotine patch and does drink alcohol. PRESCRIPTION MONITORING SYSTEM: According to the prescription monitoring system, the patient last filled her medications on 05/20. We have adjusted her medications due to her hospitalization. She is here needing refills today. According to the CDC guidelines, her morphine mEq per day is 80 morphine mEq. PHYSICAL EXAMINATION: GENERAL: This is alert and orientated female who appears her stated age, placing her current pain score from 0-7. HEENT: Normocephalic, atraumatic. Extraocular eye muscles are intact. Mucous membranes are moist. MUSCULOSKELETAL: She has pain in her lumbosacral area that radiates down her left leg greater than the right following the L5-S1 dermatomal distribution. Lower extremity strength judged to be 5/5, but deconditioned. She is in a wheelchair today. She does walk with an antalgic gait. IMPRESSION: 1. Lumbar radiculopathy following the L5-S1 dermatomal distribution. 2. Chronic intractable low back pain, post-laminectomy syndrome. 3. Failed spinal cord stimulator therapy. 4. Osteoarthritis. 5. Recent hospitalization with possible overdose. 6. Status post hip replacement and osteoarthritis. 7. Differential arthritis. 8. Management of high risk medications under terms of written opioid agreement including polypharmacy with benzodiazepines. [facility] [address] [place] [address] PAIN MANAGEMENT CONSULTATION Name: NICOLA ANGEL Room #: REG JIMAj Juarez#: [id number] Admission: 07/01/19 Attend Phys: Deyanira Cummings Discharge: Date of : 42 Report #: [id number] PLAN: 1. We discussed treatment options with the patient today. Per our last visit, the patient was instructed to see a psychiatrist regarding her recent possible overdose. The patient does have an appointment on 07/13 to see [facility] that is the soonest day we were able to get her in. She did obtain all of her records from the hospitalization at [facility] as well as our clinic notes. 2. We will continue her MS Contin 30 mg b.i.d., #60 and decrease her hydrocodone 5/325 to 2 tablets a day. We will send these prescriptions in for 1 month and the patient will follow up within 1 month. 3. The patient will continue her at home physical and occupational therapy. When that period is ended, we will gladly write for additional therapy to help with strengthening on an outpatient basis. 4. The patient is seen in collaboration with Dr. Patrick Pavon who I discussed this case with as well as with Dr Rodríguez. The patient is made appointment prior to leaving. <ELECTRONICALLY SIGNED> By: Deyanira Cummings 07/05/19 1550 [id number] [id number] Deyanira montano
== END ==
LOC: PAIN 06:53
DX: M54.16 Radiculopathy, lumbar region (principal); M96.1 Postlaminectomy syndrome, not elsewhere classified; M19.90 Unspecified osteoarthritis, unspecified site; G89.4 Chronic pain syndrome; Z79.891 Long term (current) use of opiate analgesic

== ENCOUNTER → 2019-07-29 | Outpatient (CLI) | payer OTHER ==
[~2019-07-29] VITALS: Ht 165.1 cm; Wt 61.9 kg
[2019-07-29 12:49] VITALS: BP 98/63
--- NOTE | 2019-07-29 12:59 | NUR ---
Pain Clinic Assessment: 1. History of Osteoarthritis: B/L HANDS B/L ANKLES B/L HIPS SPINE History of Rheumatoid Arthritis: Not Applicable 2. Height: 5 ft. 5 in. 165.1 cm. Weight: 136.4 lb. oz. 61.871 kg. Patient's BMI: 22.7 3. Vital Signs: BP: 98/63 Pulse: 51 Resp: 16 Temp: 02 Sat: 96 ECG Mon: 4. Pain Intensity: 0 TODAY 3 W/O WALKER 5. Fall Risk: Dizziness: N Needs help standing or walking: Y Fallen in the last 3 months: Y Fall risk comments: HOME HEALTH PHYSICAL THERAPY FOR BALANCE 6. Patient on Blood Thinner: None 7. History of Hypertension: Y 8. Opioid Therapy greater than 6 weeks: Y Opiate Contract Signed: 09/03/18 9. Risk Assessment Tool Provided: 4/ 10. Functional Assessment Tool: 11. Recreational Drug Use: Never Drug Type: Tobacco Use: Former Smoker Tobacco Type: Amount or Packs/day: How Many Years: Alcohol Use: Yes Frequency: Quant:
--- NOTE | 2019-08-03 08:55 | HPC ---
[facility] [address] [place] [address] PAIN MANAGEMENT CONSULTATION Name: NICOLA ANGEL Room #: REG MAC Larry#: [id number] Admission: 07/29/19 Attend Phys: Deyanira Cummings Discharge: Date of : 42 Report #: [id number] THIS REPORT FOR: cc: Ivy Cortez MD,Ivy Cummings,Deyanira ALTAMIRANO ~ THIS REPORT FOR: //name// CC: Deyanira Cortez DATE OF SERVICE: 07/29/2019 CHIEF COMPLAINT: Chronic low back pain, post-laminectomy syndrome, lumbar radiculopathy. HISTORY OF PRESENT ILLNESS: This is a 78-year-old female, who returns to the pain clinic today for refill of her medications. She is reporting a pain score today of 0/10, 3/10 if she is not using her walker. The patient states her pain is located in her lower back and bilateral legs. She feels that she is unsteady with her walking. She continues to do physical therapy and occupational therapy 3 times a week, has just started at [facility]. She had been having home therapy prior to this time. The patient has reported that she did see the [facility] who have sent us a letter from her treatment. They did see her on a one time only basis after her possible overdose. They recommended duloxetine in place of her Prozac from her primary care doctor for antidepressant, but also to help with some pain issues. The patient is going to discuss this with her primary care doctor next week. The patient denies any problems with constipation or daytime sleepiness. Today, she would like refills of her medications. ALLERGIES: CODEINE AND FENTANYL. CURRENT MEDICATIONS: MS Contin 30 mg b.i.d., hydrocodone 5/325 b.i.d., Narcan p.r.n. in case of emergency, Xanax, gabapentin, vitamin D, vitamin C, milk thistle extract, alprazolam, Synthroid, fluoxetine, methotrexate, folic acid, prednisone, estradiol and Xalatan. PQRS: 1. She has diffuse osteoarthritis and also is being treated for differential rheumatoid arthritis, on methotrexate. 2. Height is 5 feet 5 inches, weight is 136, BMI is 22. 3. Vital signs, blood pressure 98/63, pulse is 51, respirations 16, oxygen sat is 96. 4. Pain score 0-3. [address] [address] PAIN MANAGEMENT CONSULTATION Name: NICOLA ANGEL Room #: REG [facility].#: [id number] Admission: 07/29/19 Attend Phys: Deyanira Cummings Discharge: Date of : 42 Report #: [id number] 5. Denies dizziness. Does need assistance walking, using a walker at all times. Has fallen in the last 3 months. 6. The patient is not on any blood thinners, but does take medicine for hypertension. 7. Opiate therapy is greater than 6 weeks; therefore, an opioid signed contract on the chart. Risk assessment tool is moderate. Functional assessment is 66/70. 8. Recreational drug use, she denies. She is a former smoker and occasionally drinks alcohol nightly. Prescription monitoring system is appropriate for filling her medications according to her, the CDC guidelines, her morphine mEq is 80 MMEs per day. PHYSICAL EXAMINATION: GENERAL: This is alert and orientated, 78-year-old female who appears her stated age, placing her current pain score from 0-3. HEENT: Normocephalic, atraumatic. Extraocular eye muscles are intact. Mucous membranes are moist. MUSCULOSKELETAL: Pain in her lumbosacral region that radiates into her bilateral legs following the L5-S1 dermatomal distribution. Her lower extremity strength judged to be 5/5, though the patient complains of weakness. She uses a rolling walker for ambulation and has a slow antalgic gait. IMPRESSION: 1. Lumbar radiculopathy following the L5-S1 dermatomal distribution. 2. Chronic intractable low back pain, post-laminectomy syndrome. 3. Osteoarthritis. 4. Differential rheumatoid arthritis. 5. Failed spinal cord stimulator therapy. 6. Management of high risk medications under terms of written opioid agreement. We reviewed the fact that opiate medications are being used to provide analgesia adequate to support activities of daily living, not attempting to achieve a specific pain score on the 0-10 Visual Analog Scale. The current opiate medications are providing sufficient analgesia to allow the patient to participate in activities of daily living. The patient is not exhibiting any aberrant behavior suggestive of drug diversion. The patient is not having any adverse reactions to medications. The patient is not suffering from daytime somnolence or mental acuity changes. The patient is managing opiate-induced constipation with appropriate qice-oul-vyvaefi agents and dietary considerations. The patient was counseled on concern for caution with operating a motor vehicle while using opiate medications. A physical exam was performed and the patient's functional status was evaluated. All patients with back pain were advised against the bed rest greater than 4 days and were advised to return to normal activities. Pain score assessment was [address] [address] PAIN MANAGEMENT CONSULTATION Name: NICOLA ANGEL Room #: REG MAC Juarez#: [id number] Admission: 07/29/19 Attend Phys: Deyanira Cummings Discharge: Date of : 42 Report #: [id number] noted and the treatment plan was reviewed with the patient. All current medications, both prescribed and OTC were reviewed and reconciled on the electronic medical record. Tobacco screening was accomplished and smoking cessation was advised when indicated. BMI was noted and diet/exercise modification was recommended for all patients following outside normal parameters. I reviewed with the patient today their responsibilities to safeguard prescription medications, reviewed their responsibility to utilize medications only as prescribed by the physician. They are to seek and receive pain medications only from 1 physician group ( [facility]). They are to use 1 pharmacy and keep the clinic informed if they change pharmacies. Their responsibilities include making followup visits in a timely fashion and to avoid abrupt discontinuation of medication usage. Their responsibilities further include bringing their medications (bottles from the pharmacy with residual pills) to the visit for possible confirmation of pill counts and the patient understands it is their responsibility to submit to random drug screens to ensure both that the medications prescribed are present, and that no other controlled substances are present. All prescriptions provided today were generated electronically. PLAN: 1. We discussed treatment options with the patient today. The patient is to continue her physical therapy. We discussed she is having balance issues. I encouraged her to have her primary care doctor examine her ears at her visit next week when she goes to discuss rotating from Prozac to Cymbalta. 2. We will refill 1 month of medications for her of her MS Contin 30 mg b.i.d. and hydrocodone 5/325, #90. The patient will return in 1 month. At that time, we will discuss with Dr. Pavon again if she may come every 2 months for office visits. 3. The patient is seen today in collaboration with Dr. Patrick Pavon who I discussed the care with and he sets medications. <ELECTRONICALLY SIGNED> By: Deyanira Cummings 08/03/19 0855 1344 [id number] Deyanira Cummings /nt
== END ==
LOC: PAIN 07:51
DX: M96.1 Postlaminectomy syndrome, not elsewhere classified (principal); M54.16 Radiculopathy, lumbar region; G89.29 Other chronic pain; M19.90 Unspecified osteoarthritis, unspecified site; M06.9 Rheumatoid arthritis, unspecified; Z88.5 Allergy status to narcotic agent; Z79.891 Long term (current) use of opiate analgesic; Z79.899 Other long term (current) drug therapy

== ENCOUNTER → 2019-08-26 | Outpatient (CLI) | payer OTHER ==
[~2019-08-26] VITALS: Ht 157.5 cm; Wt 62.1 kg
[~2019-08-26] MED LIST changes: +CYMBALTA20 MG PO; +MS CONTIN 30 MG30 M1 PO; +NEURONTIN800 MG PO
[2019-08-26 12:40] VITALS: BP 127/66
--- NOTE | 2019-08-26 12:48 | NUR ---
Pain Clinic Assessment: 1. History of Osteoarthritis: B/L HANDS B/L ANKLES B/L HIPS SPINE History of Rheumatoid Arthritis: DENIES 2. Height: 5 ft. 2 in. 157.5 cm. Weight: 137.0 lb. oz. 62.143 kg. Patient's BMI: 25.1 3. Vital Signs: BP: 127/66 Pulse: 105 Resp: 16 Temp: 02 Sat: 96 ECG Mon: 4. Pain Intensity: 0 NOW 5. Fall Risk: Dizziness: N Needs help standing or walking: N Fallen in the last 3 months: N Fall risk comments: HOME HEALTH PHYSICAL THERAPY FOR BALANCE 6. Patient on Blood Thinner: None 7. History of Hypertension: Y 8. Opioid Therapy greater than 6 weeks: Y Opiate Contract Signed: 09/03/18 9. Risk Assessment Tool Provided: 10. Functional Assessment Tool: 11. Recreational Drug Use: Never Drug Type: Tobacco Use: Current Every Day Smoker Tobacco Type: Cigarettes Amount or Packs/day: .25 How Many Years: Alcohol Use: Yes Frequency: Daily Quant: WINE AND COCKTAIL
--- NOTE | 2019-08-27 08:20 | HPC ---
[facility] [address] [place] [address] PAIN MANAGEMENT CONSULTATION Name: NICOLA ANGEL Room #: REG MAC Larry#: [id number] Admission: 08/26/19 Attend Phys: Deyanira Cummings Discharge: Date of : 42 Report #: [id number] THIS REPORT FOR: cc: Ivy Cortez MD,Ivy uCmmings,Deyanira ALTAMIRANO ~ CC: Deyanira Cortez DATE OF SERVICE: 08/26/2019 CHIEF COMPLAINT: Chronic low back pain, post-laminectomy syndrome, lumbar radiculopathy. HISTORY OF PRESENT ILLNESS: This is a 78-year-old female, who returns to the pain clinic today for refill of medications for her back pain. She reports it does radiate into her left leg and into her bilateral buttocks. It is a sharp, shooting, aching pain, though today she is rating her pain score as 0/10 currently, her pain increases with walking. She feels the medications are very beneficial as well as sitting. She reports that she is going to physical therapy 3 times a week and doing her exercises at home. She feels like she is getting stronger and has helped to decrease some of her pain. She walked into our clinic today. In the last few visits she has been in a wheelchair, so this is an improvement. Patient is upbeat today in her attitude and appearance. The patient does report that she had a CT with myelogram of her lumbar spine earlier in the week. She reports she is following up with Dr. Alvares's office next week to find out the results. She will let us know these results or have the doctor's office send them to us in regards to her lower back. ALLERGIES: CODEINE AND FENTANYL. CURRENT LIST OF MEDICATIONS: Duloxetine 20 mg b.i.d., morphine sulfate 30 mg b.i.d., hydrocodone 5/325 b.i.d. p.r.n., tizanidine, gabapentin, vitamin D, vitamin C, milk thistle oil seed, Xanax, Synthroid, methotrexate, folic acid, progesterone, estradiol and Xalatan. PQRS: 1. The patient has a history of osteoarthritis in her upper and lower extremities as well as her spine and is being treated for rheumatoid arthritis issues with methotrexate. Height is 5 feet 2 inches, weight is 137, BMI is 25. 2. Vital signs 127/66, pulse is 105, respirations 16, oxygen sat is 96. Pain score 0 of 10 currently. The patient denies dizziness, does not need help walking or standing, has not fallen in the last 3 months. The patient is not on any blood thinners, does not take medicine for hypertension. Her opioid therapy is greater than 6 weeks; therefore, an opioid signed contract is on the chart. [address] [address] PAIN MANAGEMENT CONSULTATION Name: NICOLA ANGEL Danial Room #: REG Aj Juarez#: [id number] Admission: 08/26/19 Attend Phys: Deyanira Cummings Discharge: Date of : 42 Report #: [id number] Risk assessment is moderate. Functional assessment 66/70. 3. Recreational drug use, she denies. She is a current smoker about 1/4 pack a day of cigarettes and does drink wine each evening. According to the prescription monitoring system, the patient has been filling appropriately for her medications in a timely fashion. Her current morphine mEq according to the CDC guidelines is 70 MMEs per day. There is a recent drug screen on the chart as well. PHYSICAL EXAMINATION: GENERAL: This is an alert and orientated patient who appears quite upbeat today and orientated. Her pain score today is 0/10. HEENT: Normocephalic, atraumatic. Extraocular eye muscles are intact. Mucous membranes are moist. Sclerae are reddened in her right eye. MUSCULOSKELETAL: She has pain in the lumbosacral region that radiates into her left leg following the L5-S1 dermatomal distribution. Her lower extremity strength judged to be 5/5. She walks with a slow antalgic gait. IMPRESSION: 1. Lumbar radiculopathy following the L5-S1 dermatomal distribution. 2. Chronic intractable low back pain, post-laminectomy syndrome. 3. Failed spinal cord stimulator therapy. 4. Osteoarthritis. 5. Status post hip replacement due to osteoarthritis. 6. Differential arthritis. 7. Management of high risk medications under terms of written opioid agreement including polypharmacy with benzodiazepine use. We reviewed the fact that opiate medications are being used to provide analgesia adequate to support activities of daily living, not attempting to achieve a specific pain score on the 0-10 Visual Analog Scale. The current opiate medications are providing sufficient analgesia to allow the patient to participate in activities of daily living. The patient is not exhibiting any aberrant behavior suggestive of drug diversion. The patient is not having any adverse reactions to medications. The patient is not suffering from daytime somnolence or mental acuity changes. The patient is managing opiate-induced constipation with appropriate ctbm-hce-voaszdy agents and dietary considerations. The patient was counseled on concern for caution with operating a motor vehicle while using opiate medications. PLAN: 1. We discussed treatment options with the patient today. I explained to the patient that she seems more upbeat today. The patient states she recently transitioned off Prozac and is now taking Cymbalta 2 tablets a day. She feels that this medication has been helpful for her with her anxiety and depression issues. I did explain to her that Cymbalta also helps with pain and this may be [facility] [address] [place] [address] PAIN MANAGEMENT CONSULTATION Name: STANLEYNICOLA Danial Room #: REG MAC Juarez#: [id number] Admission: 08/26/19 Attend Phys: Deyanira Cummings Discharge: Date of : 44 Report #: [id number] why her pain sensitivity has decreased slightly. 2. The patient continues to go to physical therapy 3 times a week. I encouraged her to continue her exercises at home even once her physical therapy has stopped. She has progressed quite significantly from a wheelchair and walker to now walking independently. 3. We will send her medicines electronically for MS Contin 30 mg b.i.d., quantity 60 for today and 4-week release, hydrocodone 5/325, #90, gabapentin 800 mg, #120 for 5 refills. 4. The patient recently had a CT myelogram of her lumbar spine. I asked the patient to have records sent to Dr. Patrick Pavon of these tests. The patient verbalizes understanding. She will have them sent here. 5. The patient is seen today in collaboration with Dr. Patrick Pavon. <ELECTRONICALLY SIGNED> By: Deyanira Cummings 08/27/19 0820 1426 [id number] Deyanira montano
== END ==
LOC: PAIN 07:01
DX: M54.17 Radiculopathy, lumbosacral region (principal); G89.29 Other chronic pain; M19.90 Unspecified osteoarthritis, unspecified site; M96.1 Postlaminectomy syndrome, not elsewhere classified; Z88.5 Allergy status to narcotic agent; Z88.8 Allergy status to other drugs, medicaments and biological substances; Z96.649 Presence of unspecified artificial hip joint; Z79.899 Other long term (current) drug therapy

== ENCOUNTER → 2019-09-16 | Outpatient (CLI) | payer OTHER ==
[~2019-09-16] VITALS: Ht 157.5 cm; Wt 64.0 kg
--- NOTE | ~2019-09-16 | HPC ---
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 The patient returns to Pain Clinic today from Dr. Alvares office with the recommendation for us to assess her for possible medial branch nerve blocks. She does have localized pain as well as some radicular component down into the left leg. Pain is worse in the low back, then the leg. She has responded in the past to injections with modest relief. Today, she scores her pain on admission as a 4-5, it is 10 at night. PQRS: Positive for diffuse osteoarthritis involving bilateral hands, ankles, hips and spine. Her BMI is 25.8, blood pressure 130/88, heart rate 90, respirations 16, O2 sat 93. Pain intensity at the time of visit today 5. She has not fallen, but has been taking home physical therapy for balance. She denies use of blood thinning medications. She is treated for hypertension by her primary physician, Dr. Cortez and we provide her with opioids under terms of written opioid agreement. She is on hydrocodone 5/325 three times a day, hydrocodone 5/325 three times a day and MS Contin 30 mg b.i.d. as well as gabapentin 800 mg q.i.d. Prescriptions were last provided for her on 08/26/2019 and we reviewed these prescriptions. Her responsibilities in safeguarding and taking them as prescribed and reviewed as well. She did have an overdose situation in June. We have tapered her medicines somewhat since then. She asked for additional medicines today and it was denied. She has Narcan spray at home as well and family members have been instructed in its use. The patient continues to smoke and was counseled, particularly important during this time of COVID-19 and the most vulnerable including those with smoking habits bronchitis, COPD are often the ones most severely stricken. She drinks alcohol as well in a social setting. She was counseled about the use of opioids and alcohol at the same setting. PHYSICAL EXAMINATION: VITAL SIGNS: As noted. [address] [address] PAIN MANAGEMENT CONSULTATION Name: NICOLA ANGEL Room #: REG [facility].#: [id number] Admission: 09/16/19 Attend Phys: Patrick Pavon MD Discharge: Date of : 42 Report #: [id number] GENERAL: Her affect is pleasant today. She does not seem depressed. She has pain across her low back and pain with both forward flexion and extension. Extension exacerbates pain dramatically in the right lumbosacral area. She has tenderness over the very lowest segment. X-rays reveal a fusion that extends down to L5, but does not incorporate S1. This will provide for hypermobile segment. IMPRESSION: Hypermobility, L5-S1 facet joint with facet arthropathy and spondylosis. RECOMMENDATION: Left L5 dorsal ramus and L4 medial branch nerve blocks in a diagnostic attempt to evaluate for radiofrequency potential. Procedure was explained in some detail, the patient risks and benefits. She is anxious to proceed. PROCEDURE: She was taken to fluoroscopic suite, placed prone, skin prepped with ChloraPrep. Skin anesthetized over the L5 dorsal ramus at the sacral ala. A 25-gauge needle was positioned. C-arm was then moved into an oblique position. Landmarks were somewhat obscured by the pedicle screws. Identified the location for the radiofrequency procedure to attack the L4 medial branch nerve and a 25-gauge needle was advanced to the medial portion of the transverse processes there. After negative aspiration, each needle was then injected with one-half of a mL of 0.5% bupivacaine. Chest[place]ridge were removed. She was taken to recovery room and observed for 30 minutes. Prior to discharge, she was put through some tests bending, flexing, twisting and turning and she reported a pain score of 0. She was given a diary. She will return next week for a second medial branch nerve block. No steroids were utilized for this procedure. No medications were ordered. She has medications already available and she has been informed that she is to make deal with a substantial amount of opioids that she has available and for her treatment. By: [id number] Patrick Pavon MD /nt
[2019-09-16 12:36] VITALS: BP 130/88
--- NOTE | 2019-09-16 12:44 | NUR ---
Pain Clinic Assessment: 1. History of Osteoarthritis: B/L HANDS B/L ANKLES B/L HIPS SPINE History of Rheumatoid Arthritis: DENIES 2. Height: 5 ft. 2 in. 157.5 cm. Weight: 141.0 lb. oz. 63.957 kg. Patient's BMI: 25.8 3. Vital Signs: BP: 130/88 Pulse: 90 Resp: 16 Temp: 02 Sat: 93 ECG Mon: 4. Pain Intensity: 4-5; 10 AT NIGHT 5. Fall Risk: Dizziness: N Needs help standing or walking: N Fallen in the last 3 months: N Fall risk comments: HOME HEALTH PHYSICAL THERAPY FOR BALANCE 6. Patient on Blood Thinner: None 7. History of Hypertension: Y 8. Opioid Therapy greater than 6 weeks: Y Opiate Contract Signed: 09/03/18 9. Risk Assessment Tool Provided: 4/MOD 10. Functional Assessment Tool: 11. Recreational Drug Use: Never Drug Type: Tobacco Use: Current Every Day Smoker Tobacco Type: Amount or Packs/day: How Many Years: Alcohol Use: Yes Frequency: Quant:
== END | disposition home or self-care (01) ==
LOC: PAIN 06:49
DX: M47.816 Spondylosis without myelopathy or radiculopathy, lumbar region (principal); G89.29 Other chronic pain; I10 Essential (primary) hypertension; M19.90 Unspecified osteoarthritis, unspecified site; F17.210 Nicotine dependence, cigarettes, uncomplicated; Z98.890 Other specified postprocedural states; Z79.899 Other long term (current) drug therapy; Z79.891 Long term (current) use of opiate analgesic; Z88.8 Allergy status to other drugs, medicaments and biological substances

== ENCOUNTER → 2019-09-23 | Outpatient (CLI) | payer OTHER | END | disposition home or self-care (01) | LOC: PAIN 07:56 | DX: M47.817 Spondylosis without myelopathy or radiculopathy, lumbosacral region (principal); G89.29 Other chronic pain; Z98.890 Other specified postprocedural states; Z79.899 Other long term (current) drug therapy; Z88.8 Allergy status to other drugs, medicaments and biological substances ==

== ENCOUNTER → 2019-10-14 | Outpatient (CLI) | payer OTHER ==
[~2019-10-14] VITALS: Ht 157.5 cm; Wt 62.9 kg
[~2019-10-14] MED LIST changes: +CHANTIX1 EACH PO
[2019-10-14 12:42] VITALS: BP 148/98
--- NOTE | 2019-10-14 13:01 | NUR ---
Pain Clinic Assessment: 1. History of Osteoarthritis: B/L HANDS B/L ANKLES B/L HIPS SPINE History of Rheumatoid Arthritis: DENIES 2. Height: 5 ft. 2 in. 157.5 cm. Weight: 138.6 lb. oz. 62.868 kg. Patient's BMI: 25.3 3. Vital Signs: BP: 148/98 Pulse: 100 Resp: 14 Temp: 02 Sat: 98 ECG Mon: 4. Pain Intensity: 0 5. Fall Risk: Dizziness: N Needs help standing or walking: Y Fallen in the last 3 months: N Fall risk comments: HOME HEALTH PHYSICAL THERAPY FOR BALANCE 6. Patient on Blood Thinner: None 7. History of Hypertension: Y 8. Opioid Therapy greater than 6 weeks: Y Opiate Contract Signed: 09/03/18 9. Risk Assessment Tool Provided: 4/MOD 10. Functional Assessment Tool: 11. Recreational Drug Use: Never Drug Type: Tobacco Use: Current Every Day Smoker Tobacco Type: Cigarettes Amount or Packs/day: 1 PACK DAY How Many Years: Alcohol Use: Yes Frequency: Daily Quant: 1-2 GLASSES OF WINE
--- NOTE | 2019-10-15 07:43 | HPC ---
[facility] [address] [place] [address] PAIN MANAGEMENT CONSULTATION Name: NICOLA ANGEL Room #: REG MAC Larry#: [id number] Admission: 10/14/19 Attend Phys: Deyanira Cummings Discharge: Date of : 42 Report #: [id number] THIS REPORT FOR: cc: Ivy Cortez MD, Rebecca A. MD Hocker, Amanda CNS ~ CC: Patrick Pavon MD DATE OF SERVICE: 10/14/2019 CHIEF COMPLAINT: Post-laminectomy syndrome with lumbar spondylosis and radiculopathy. HISTORY OF PRESENT ILLNESS: This is a 79-year-old female who returns to the pain clinic today for refill of her medications and a followup post-medial branch block injection. The patient reports today a pain score of 0/10. She states that she is doing quite well since she had her medial branch block by Dr. aPtrick Pvaon 3 weeks ago. She reports that she had 100% pain improvement for 4 hours post-injection and at 8 hours post-injection, her pain had returned to a level of 2/10. The patient felt like the injection was very beneficial, but she is unsure if she needs to continue with the process to have a radiofrequency ablation when she currently has no pain and her pain is being controlled with her opioid medications. I agree with that. I believe that at this present time, we should continue with her medications, taking the lowest most effective dose and hold off on the injections treatments. The patient does report that she has been active in her yard and has been continuing her physical therapy 3 times a week. She finds that all of these have been beneficial in decreasing her pain. She is worried that she will start working again here soon after the coronavirus and she will be required to sit and that may increase her pain again. She denies any problems with constipation or daytime sleepiness as a result of her opioid medications. The patient does report she was unable to fill the Chantix prescription that Dr. Patrick Pavon prescribed due to the cost prohibitive medication. She is trying to cut back on her own of her smoking cigarettes, but currently continues 1 pack a day. ALLERGIES: CODEINE AND FENTANYL. CURRENT LIST OF MEDICATIONS: Morphine sulfate 30 mg b.i.d., hydrocodone 5/325 b.i.d. p.r.n., gabapentin 800 mg 2 times a day, Narcan as needed, Cymbalta, tizanidine, vitamin D, vitamin C, milk thistle extract, Synthroid, methotrexate, folic acid, progesterone, estradiol. PQRS: 1. She has osteoarthritis in her hands, knees and ankles, [place] [address] PAIN MANAGEMENT CONSULTATION Name: NICOLA ANGEL Danial Room #: REG MAC Juarez#: [id number] Admission: 10/14/19 Attend Phys: Deyanira Cummings Discharge: Date of : 42 Report #: [id number] for differential arthritis with methotrexate. 2. Height is 5 feet 2 inches, Weight is 138, BMI is 25. 3. Vital signs 148/98, pulse is 100, respirations 14, oxygen sat is 98. 4. Pain score 0/10. 5. Denies dizziness, does not need help walking or standing, has not fallen in the last 3 months. 6. The patient is not on any blood thinners, but does take medicine for hypertension. 7. Opioid therapy is greater than 6 weeks; therefore, an opioid signed contract is on the chart. Risk assessment is moderate. Functional assessment 66/70. 8. Recreational drug use, she denies. She is a current smoker, pack of cigarettes a day and does drink alcohol nightly. According to the prescription monitoring system, the patient is filling her medications appropriately in a timely fashion. PHYSICAL EXAMINATION: GENERAL: This is alert and orientated 79-year-old female who appears her stated age, placing her current pain score is 0/10. HEENT: Normocephalic, atraumatic. Extraocular eye muscles are intact. Mucous membranes are moist. MUSCULOSKELETAL: She has pain across the lumbosacral region with no current radicular pattern. Her lower extremity strength judged to be 5/5 in all major muscle groups. She walks with a slow antalgic gait. IMPRESSION: 1. Facet arthroscopy. 2. Lumbar spondylosis. 3. Failed spinal cord stimulator therapy. 4. Osteoarthritis. 5. Differential arthritis. 6. Status post hip replacement due to osteoarthritis. 7. Management of high risk medications under terms of written opioid agreement including polypharmacy with benzodiazepine. PLAN: 1. We discussed treatment options with the patient today. The patient reports that she did decrease her gabapentin recently from 800 mg 4 times a day due to extremely dry mouth. She did read on the internet that that is a possible complication since she has decreased her dose. Her dry mouth, has resolved. I encouraged her to continue at the lowest most effective dose, currently taking 2 tablets of gabapentin a day; if her pain has subsided, we would encourage her to keep at her 800 mg b.i.d. 2. The patient is in not need of opioid prescription refills today. She has them at the pharmacy. Dr. Patrick Pavon did provide her with 2 months at her last visit. [address] [address] PAIN MANAGEMENT CONSULTATION Name: NICOLA ANGEL Room #: REG [facility]#: [id number] Admission: 10/14/19 Attend Phys: Deyanira Cummings Discharge: Date of : 42 Report #: [id number] 3. The patient is requesting refill of her tizanidine. She takes one tablet on average a day for muscle spasms. I will electronically send 4 mg capsules, #60 with 2 additional refills. 4. We discussed that the patient had good results from her medial branch block affording her 100% relief for 4 hours post-injection. At this time, I do not feel that she needs to have the radiofrequency ablation performed since she is having no pain. Her pain is currently controlled with her long-acting medications. I encouraged the patient if her pain does return that we could schedule this in the future. Also, at this present time, we are not doing certain injections due to the COVID virus. The patient verbalizes understanding. 5. We will make an appointment for 1 month for followup for medications. At that time, we will revisit her pain levels and decide if a radiofrequency ablation will be needed at that time. The patient is seen in collaboration with Dr. Patrick Pavon. <ELECTRONICALLY SIGNED> By: Deyanira Cummings 10/15/19 [id number] Deyanira Cummings /nt
== END ==
LOC: PAIN 07:25
DX: M47.26 Other spondylosis with radiculopathy, lumbar region (principal); M96.1 Postlaminectomy syndrome, not elsewhere classified; T85.192A Other mechanical complication of implanted electronic neurostimulator of spinal cord electrode (lead), initial encounter; M19.90 Unspecified osteoarthritis, unspecified site; F11.20 Opioid dependence, uncomplicated; Z96.641 Presence of right artificial hip joint; Z88.5 Allergy status to narcotic agent; Z88.8 Allergy status to other drugs, medicaments and biological substances; Z79.899 Other long term (current) drug therapy

== ENCOUNTER → 2019-11-15 | Outpatient (CLI) | payer OTHER ==
[~2019-11-15] VITALS: Ht 160 cm; Wt 62.6 kg
[~2019-11-15] MED LIST changes: +MS CONTIN15 MG PO
[2019-11-15 12:42] VITALS: BP 124/78
--- NOTE | 2019-11-15 12:46 | NUR ---
Pain Clinic Assessment: 1. History of Osteoarthritis: B/L HANDS B/L ANKLES B/L HIPS SPINE History of Rheumatoid Arthritis: DENIES 2. Height: 5 ft. 3 in. 160.0 cm. Weight: 138.0 lb. oz. 62.596 kg. Patient's BMI: 24.5 3. Vital Signs: BP: 124/78 Pulse: 90 Resp: 16 Temp: 02 Sat: 95 ECG Mon: 4. Pain Intensity: 0 5. Fall Risk: Dizziness: N Needs help standing or walking: N Fallen in the last 3 months: Y Fall risk comments: HOME HEALTH PHYSICAL THERAPY FOR BALANCE 6. Patient on Blood Thinner: None 7. History of Hypertension: Y 8. Opioid Therapy greater than 6 weeks: Y Opiate Contract Signed: 09/03/18 9. Risk Assessment Tool Provided: 4/ 10. Functional Assessment Tool: 11. Recreational Drug Use: Never Drug Type: Tobacco Use: Current Every Day Smoker Tobacco Type: Cigarettes Amount or Packs/day: 1 PACK/DAY How Many Years: 59 Alcohol Use: Yes Frequency: Quant:
--- NOTE | 2019-11-16 08:22 | HPC ---
[facility] [address] [address] PAIN MANAGEMENT CONSULTATION Name: NICOLA ANGEL Room #: REG MAC Larry#: [id number] Admission: 11/15/19 Attend Phys: Deyanira Cummings Discharge: Date of : 42 Report #: [id number] THIS REPORT FOR: cc: Ivy Cortez MD, Rebecca A. MD Hocker, Amanda CNS ~ CC: Patrick Pavon MD DATE OF SERVICE: 11/15/2019 CHIEF COMPLAINT: Post-laminectomy syndrome with lumbar spondylosis and radiculopathy. HISTORY OF PRESENT ILLNESS: This is a 79-year-old female who returns to the pain clinic today to discuss her opioid medications. She takes her MS Contin and hydrocodone for her low back pain that radiates into her left buttock. Today, she is reporting a pain score of 0/10. 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 She feels that sitting and lying down as well as her medication are beneficial. She has returned to work since the COVID virus had caused her to stop working. She finds that enjoyable and beneficial as well. Today, she is here wondering if she would be able to decrease her opioid medications slightly. She states that since she is not having any pain and is being active, she would like to try this decrease of her long-acting medication. She also reports that she has no side effects of constipation or daytime sleepiness as a result of her medication. She continues her physical therapy, going 3 times a week. She finds this very beneficial in helping control her pain as well. ALLERGIES: CODEINE AND FENTANYL. CURRENT LIST OF MEDICATIONS: Fluoxetine, tizanidine, MS Contin 30 mg b.i.d., hydrocodone 5/325 b.i.d., gabapentin 800 mg 4 times a day, vitamin D, vitamin C, milk thistle extract, Synthroid, methotrexate, folic acid, progesterone, estradiol. PQRS: 1. She has osteoarthritic changes in her hands, knees and ankle and is also being treated for differential arthritis with methotrexate. 2. Height is 5 feet 3 inches, weight is 138, BMI is 24. 3. Vital signs 124/78, pulse is 90, respirations 16, oxygen sat is 95. 4. Pain score is 0/10. 5. Denies dizziness, does not need help walking or standing. Occasionally uses a cane. She has fallen in the last 3 months, but continues physical therapy. 6. Denies any blood thinners, does take medicine for hypertension. 7. Opioid therapy is greater than 6 weeks; therefore, an opioid signed contract [address] [address] PAIN MANAGEMENT CONSULTATION Name: NICOLA ANGEL Danial Room #: REG CLAj Juarez#: [id number] Admission: 11/15/19 Attend Phys: Deyanira Cummings Discharge: Date of : 42 Report #: [id number] is on the chart. Risk assessment tool is moderate. Functional assessment 66/70. 8. Recreational drug use, she denies. She is currently a smoker of 1 pack of cigarettes a day and does drink alcohol. According to the prescription monitoring system, it is not listing her [facility] pharmacy. We will call them to assure that she is filling is appropriate, though she is on time for her medications. There is a recent drug screen on the chart as well. PHYSICAL EXAMINATION: GENERAL: This is a well-developed, well-nourished, alert and orientated 79-year-old who appears her stated age, placing her current pain score at 0. HEENT: Normocephalic, atraumatic. Extraocular eye muscles are intact. She is wearing a mask and glasses today. MUSCULOSKELETAL: She is able to ambulate with a slow antalgic gait slightly with slight kyphosis. Her lower extremity strength judged to be 5/5 in all major muscle groups. She has pain in her lumbosacral region with no radicular symptoms today. IMPRESSION: 1. Facet arthroscopy. 2. Lumbar spondylosis. 3. Failed spinal cord stimulator therapy. 4. Osteoarthritis. 5. Differential arthritis. 6. Status post hip replacement. 7. Management of high-risk medications, terms of written opioid agreement including polypharmacy with benzodiazepine. CURRENT PLAN: 1. We discussed treatment options with the patient today. The patient's overall pain score is 0. She continues to do her physical therapy 3 times a week and her exercises throughout the day. She is getting stronger, she is working on her balance and trying to stand tall. She feels that overall she is doing quite well and would like to discuss decreasing her medications slightly. Her thought was to take medicines every other day. Instead of this option, I encouraged her to decrease her strength of MS Contin to 15 mg twice a day. This is a 50% reduction in her dose. I believe by taking it every other day, she would experience withdrawal symptoms. The patient is agreeable with this. We will have Dr. Patrick Pavon send electronically MS Contin 15 mg b.i.d. for this month and next. The patient will start this new regimen next week when she fills her medications and instructed to call if she is having difficulties. We will continue her on her hydrocodone 5/325 two tablets a day. [facility] [address] [facility] [place] [address] PAIN MANAGEMENT CONSULTATION Name: NICOLA ANGEL Room #: REG MAC Juarez#: [id number] Admission: 11/15/19 Attend Phys: Deyanira Cummings Discharge: Date of : 42 Report #: [id number] 2. The patient is seen today in collaboration with Dr. Patrick Pavon who did see the patient as well. <ELECTRONICALLY SIGNED> By: Deyanira Cummings 11/16/19 0822 [id number] Deyanira Cummings /nt
== END ==
LOC: PAIN 06:52
DX: M47.26 Other spondylosis with radiculopathy, lumbar region (principal); M51.16 Intervertebral disc disorders with radiculopathy, lumbar region; F17.210 Nicotine dependence, cigarettes, uncomplicated; M19.90 Unspecified osteoarthritis, unspecified site; Z79.899 Other long term (current) drug therapy; Z79.891 Long term (current) use of opiate analgesic

== ENCOUNTER → 2020-01-06 | Outpatient (CLI) | payer OTHER ==
[~2020-01-06] VITALS: Ht 160 cm; Wt 60.2 kg
[~2020-01-06] MED LIST changes: +BUSPIRONE HCL15 MG PO
[2020-01-06 13:52] VITALS: BP 144/81
--- NOTE | 2020-01-06 13:56 | NUR ---
Pain Clinic Assessment: 1. History of Osteoarthritis: B/L HANDS B/L ANKLES B/L HIPS SPINE History of Rheumatoid Arthritis: DENIES 2. Height: 5 ft. 3 in. 160.0 cm. Weight: 132.8 lb. oz. 60.238 kg. Patient's BMI: 23.5 3. Vital Signs: BP: 144/81 Pulse: 106 Resp: 18 Temp: 02 Sat: 99 ECG Mon: 4. Pain Intensity: 5 5. Fall Risk: Dizziness: N Needs help standing or walking: N Fallen in the last 3 months: N Fall risk comments: HOME HEALTH PHYSICAL THERAPY FOR BALANCE 6. Patient on Blood Thinner: None 7. History of Hypertension: Y 8. Opioid Therapy greater than 6 weeks: Y Opiate Contract Signed: 09/03/18 9. Risk Assessment Tool Provided: 4/ 10. Functional Assessment Tool: 11. Recreational Drug Use: Never Drug Type: Tobacco Use: Current Every Day Smoker Tobacco Type: Amount or Packs/day: How Many Years: Alcohol Use: Yes Frequency: Quant:
--- NOTE | 2020-01-07 09:47 | HPC ---
[facility] [address] [place] [address] PAIN MANAGEMENT CONSULTATION Name: NICOLA ANGEL Room #: REG MAC Larry#: [id number] Admission: 01/06/20 Attend Phys: Deyanira Cummings Discharge: Date of : 44 Report #: [id number] THIS REPORT FOR: cc: Ivy Cortez MD, Rebecca A. 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 HISTORY OF PRESENT ILLNESS: This is a 79-year-old female who returns to the pain clinic today to discuss her pain medications. At the patient's last visit in November, she was reporting no pain with her MS Contin 30 mg b.i.d. She was wanting to decrease her pain medicines and had wanted to decrease 50%. I encouraged the patient to not be quite as aggressive that that was her request. She has found over the past month and a half that she was needing that medication at the prescribed amount, not at the lower dose, so today she would like to return to her morphine 30 mg b.i.d. She had initially tried 15 mg twice a day, then returned to 15 mg 3 times a day, but has found that she is able to be more active and complete her activities of daily living and work and work in her garden at her previous dose. She continues to not have problems with constipation. She does take hydrocodone on an as needed basis. Today, she is rating her pain score a 5/10, again in her lower back that does radiate into her left buttock. The patient does report she did see Dr. Vanegas, her previous surgeon. He also encouraged her not to have surgery at this time if she was able to get by utilizing opioid medications and occasional injections as well as stretching exercises that she learned in physical therapy and they controlled her pain. She was encouraged to continue with those modalities to treat her pain. ALLERGIES: CODEINE AND FENTANYL. CURRENT LIST OF MEDICATIONS: Buspirone 15 mg b.i.d., MS Contin 15 mg t.i.d., hydrocodone 5/325 p.r.n., fluoxetine 40 mg, gabapentin, vitamin D3, vitamin C, milk thistle extract, Synthroid, methotrexate, folic acid, progesterone and Estrace. PQRS: 1. She has arthritic changes in her hands, knees and ankles and also being treated for differential arthritis with methotrexate. 2. Height is 5 feet 3 inches, weight is 132, [place] [address] PAIN MANAGEMENT CONSULTATION Name: NICOLA ANGEL [id number] Admission: 01/06/20 Attend Phys: Deyanira Cummings Discharge: Date of : 42 Report #: [id number] 3. Vital signs 144/81, pulse is 106, respirations 18, oxygen sat is 99. 4. Pain score is 5/10. 5. Denies dizziness, does not need help walking or standing, has not fallen in the last 3 months. She does use a cane occasionally. 6. Blood thinners, she denies. She is on medicines for hypertension. 7. Opioid therapy is greater than 6 weeks; therefore, an opioid signed contract is on the chart. Risk assessment is moderate. Functional assessment 66/70. 8. Recreational drug use, she denies. She is a current smoker and does drink alcohol as well. According to the prescription monitoring system, her morphine mEq is 65 MME per day if she was to resume her morphine 30 mg b.i.d. There is a drug screen on the chart and we will check that again in the near future. PHYSICAL EXAMINATION: GENERAL: This is a well-developed, well-nourished, well-hydrated 79-year-old who appears her stated age, placing her current pain score at 5/10 today. HEENT: Normocephalic, atraumatic. Extraocular eye muscles are intact. Mucous membranes are moist. She is wearing a mask and glasses. MUSCULOSKELETAL: Her pain is in the lumbosacral region that radiates into her left buttock, following the L5-S1 dermatomal distribution. IMPRESSION: 1. Chronic intractable low back pain, post-laminectomy syndrome. 2. Failed spinal cord stimulator. 3. Osteoarthritis. 4. Differential arthritis. 5. Status post bilateral hip replacement. PLAN: 1. We discussed treatment options with the patient today. The patient found that decreasing her dose did increase her pain quite significantly and has returned to MS Contin 15 mg tablets 2 in the morning and 2 at night. She does feel that this is more beneficial than the decreased dose of morphine. She would like to have renewals today. We will have Dr. Patrick Pavon resume her previous dose of MS Contin 30 mg b.i.d., quantity 60, will be sent to her local pharmacy. The patient does have plenty of hydrocodone to take. 2. We will have the patient return in 1 month to see how she is doing with her current regimen. If her pain is decreased, we will continue then to see her every 2 months. We may revist a reduction in the future at a slower taper. 3. I did encourage the patient to continue her daily stretching and exercise. This despite finishing physical therapy at the center, I believe that this has aided in her decreased pain significantly, encouraging her to be as active as possible along with our regimen will keep her from requiring surgery. The patient is agreeable and encouraged that she is significantly better than she [facility] [address] [place] [address] PAIN MANAGEMENT CONSULTATION Name: MARIO ALBERTOBrandonNICOLA Room #: REG Aj Juarez#: [id number] Admission: 01/06/20 Attend Phys: Deyanira Cummings Discharge: Date of : 42 Report #: [id number] was in the spring. 4. The patient is seen today in collaboration with Dr. Patrick Pavon. The patient will return next month. <ELECTRONICALLY SIGNED> By: Deyanira Cummings 01/07/20 0947 [id number] 1845 Deyanira Cummings /joseph
== END ==
LOC: PAIN 01-03 10:50
PROVIDERS: ATTEND Clinical Nurse Specialist Adult Health
DX: M47.26 Other spondylosis with radiculopathy, lumbar region (principal); M96.1 Postlaminectomy syndrome, not elsewhere classified; M19.90 Unspecified osteoarthritis, unspecified site; T85.192D Other mechanical complication of implanted electronic neurostimulator of spinal cord electrode (lead), subsequent encounter; Z96.643 Presence of artificial hip joint, bilateral; Z88.8 Allergy status to other drugs, medicaments and biological substances; Z79.899 Other long term (current) drug therapy

== ENCOUNTER → 2020-02-07 | Outpatient (CLI) | payer OTHER ==
[~2020-02-07] VITALS: Ht 160 cm; Wt 60.4 kg
[2020-02-07 12:57] VITALS: BP 114/79
--- NOTE | 2020-02-07 13:09 | NUR ---
Pain Clinic Assessment: 1. History of Osteoarthritis: B/L HANDS B/L ANKLES B/L HIPS SPINE History of Rheumatoid Arthritis: DENIES 2. Height: 5 ft. 3 in. 160.0 cm. Weight: 133.2 lb. oz. 60.419 kg. Patient's BMI: 23.6 3. Vital Signs: BP: 114/79 Pulse: 89 Resp: 14 Temp: 02 Sat: 97 ECG Mon: 4. Pain Intensity: 0 5. Fall Risk: Dizziness: N Needs help standing or walking: N Fallen in the last 3 months: Y Fall risk comments: HOME HEALTH PHYSICAL THERAPY FOR BALANCE 6. Patient on Blood Thinner: None 7. History of Hypertension: Y 8. Opioid Therapy greater than 6 weeks: Y Opiate Contract Signed: 09/03/18 9. Risk Assessment Tool Provided: 4/ 10. Functional Assessment Tool: 11. Recreational Drug Use: Never Drug Type: Tobacco Use: Current Every Day Smoker Tobacco Type: Cigars Amount or Packs/day: 1 PACK How Many Years: Alcohol Use: Yes Frequency: Daily Quant: 1-2
--- NOTE | 2020-02-08 07:32 | HPC ---
[facility] [address] [address] PAIN MANAGEMENT CONSULTATION Name: NICOLA ANGEL Room #: REG MAC Larry#: [id number] Admission: 02/07/20 Attend Phys: Deyanira Cummings Discharge: Date of : 42 Report #: [id number] THIS REPORT FOR: cc: Ivy Cortez MD, Rebecca A. MD Hocker,Deyanira ALTAMIRANO ~ CC: Patrick Pavon MD DATE OF SERVICE: 02/07/2020 CHIEF COMPLAINT: Post-laminectomy syndrome with lumbar spondylosis and lumbar radiculopathy. HISTORY OF PRESENT ILLNESS: This is a 79-year-old female who returns to the pain clinic today for discussion on her opioid medications. She feels that her pain has significantly improved since she has returned to her MS Contin 30 mg twice a day. She is rating her pain as 0 today. She does take hydrocodone very sparingly throughout the week, especially when she has been busy gardening and she finds that beneficial as well. Today she states most of her pain is in her low back that radiates into her left buttock. It is a tenderness. She gardened for 5 hours yesterday and thought she would be quite sore today, but she states she has been doing home exercise therapy that she has learned in physical therapy in the past and has found this beneficial, so today she is reporting her pain is 0. She does state that sitting down and lying down are also beneficial aside from her medication therapy. ALLERGIES: CODEINE AND FENTANYL. MEDICATIONS: MS Contin 30 mg b.i.d., hydrocodone 5/325 p.r.n., buspirone, gabapentin, fluoxetine, vitamin D, vitamin C, milk thistle, Synthroid, methotrexate, folic acid, progesterone, estradiol. PQRS: 1. She has history of osteoarthritic changes in her hands, ankles, hips and spine. She is treated for differential arthritis with methotrexate. 2. Height is 5 feet 3 inches, weight is 133, BMI is 23. 3. Vital signs 114/79, pulse is 89, respirations 14, oxygen sat is 97%. 4. Pain score is 0. 5. Denies dizziness, does not need help walking or standing, has not fallen in the last 3 months. 6. The patient is not on any blood thinners, but does take medicine for hypertension. 7. Her opioid therapy is greater than 6 weeks; therefore, an opioid signed contract is on the chart. Risk assessment is moderate. Functional assessment 66/70. 8. Recreational drug use, she denies. She is a current [place] [address] PAIN MANAGEMENT CONSULTATION Name: NICOLA ANGEL Room #: REG [facility] Larry#: [id number] Admission: 02/07/20 Attend Phys: Deyanira Cummings Discharge: Date of : 44 Report #: [id number] alcohol. According to the prescription monitoring system, the patient is due to fill her medications, filling them in a timely fashion. PHYSICAL EXAMINATION: GENERAL: This is alert and orientated, well-developed, well-nourished 79-year-old female who appears her stated age, placing her current pain score at 0/10 today. HEENT: Normocephalic, atraumatic. Extraocular eye muscles are intact. She is wearing dark glasses due to recent cataract surgery. No redness noted in her eyes. She is wearing a mask. MUSCULOSKELETAL: Pain is in the lumbosacral region that radiates into her left buttocks, down her left leg following the L5-S1 dermatomal distribution. She has a slightly antalgic gait. Her lower extremity strength judged to be 5/5 in all major muscle groups. IMPRESSION: 1. Chronic intractable low back pain, post-laminectomy syndrome. 2. Failed spinal cord stimulator. 3. Osteoarthritis. 4. Differential arthritis. 5. Status post bilateral hip replacement. 6. Chronic opioid medications under terms of written agreement. PLAN: 1. We discussed treatment options with the patient today. She finds that MS Contin 30 mg very beneficial allowing her minimal pain and allows her to be as active as she would like. We will continue this medication, #60 tablets will be sent electronically by Dr. Patrick Pavon to her pharmacy. 2. We did discuss lowest most effective dose of her hydrocodone. The patient takes 1-2 tablets a day on days of the week that she is quite active. She reports having quite a few pills left. We explained to her that we would like her on the lowest most effective dose and did not have too many pills left over at the end of the month. We will decrease her amount of 40 tablets of hydrocodone a month. The patient will keep track and bring her pill bottle with her at her next visit. We may be able to decrease this lower depending on usage. Scripts will be sent by Dr. Pavon. 3. We discussed constipation issues. I encouraged her to use stool softner or mirlax on a daily basis and to increase her fluid intake. 4. The patient will return in 1 month and we will reevaluate her medications at that time. The patient is seen today in collaboration with Dr. Patrick Pavon. <ELECTRONICALLY SIGNED> By: Deyanira Cummings 02/08/20 0732 1420 1521 Deyanira montano
== END ==
LOC: PAIN 06:57
PROVIDERS: ATTEND Clinical Nurse Specialist Adult Health
DX: M96.1 Postlaminectomy syndrome, not elsewhere classified (principal); G89.4 Chronic pain syndrome; M19.90 Unspecified osteoarthritis, unspecified site; Z96.643 Presence of artificial hip joint, bilateral; Z79.891 Long term (current) use of opiate analgesic

== ENCOUNTER → 2020-03-09 | Outpatient (CLI) | payer OTHER ==
[~2020-03-09] VITALS: Ht 160 cm; Wt 60.8 kg
--- NOTE | ~2020-03-09 | HPC ---
[facility] [place] [address] [place] [address] PAIN MANAGEMENT CONSULTATION Name: NICOLA ANGEL Room #: REG JIMAj Juarez#: [id number] Admission: 03/09/20 Attend Phys: Deyanira Cummings Discharge: Date of : 44 Report #: [id number] THIS REPORT FOR: cc: Ivy Cortez MD, Rebecca A. 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 HISTORY OF PRESENT ILLNESS: This is a 79-year-old female who returns to the pain clinic today for refill of her medications. Today, she is reporting she is unsure if her current regime is helping relieve her pain. She states in the morning it is an 8/10, but later in the day it does go to 0. She is wondering if she should rotate back to OxyContin, which she had been on several years ago. Most of her pain is located in her lower back that does radiate into her buttocks. She says that it is a chronic tenderness, worse of course in the morning, but she believes that her medication and sitting are beneficial. She does do exercises every day, which she also finds very effective and is wondering if in the near future she would be able to return to physical therapy. She felt that they were very helpful in re-giving her techniques to help relieve her pain. ALLERGIES: CODEINE AND FENTANYL. CURRENT LIST OF MEDICATIONS: Morphine, MS Contin 30 mg b.i.d., hydrocodone 5/325 p.r.n., buspirone, fluoxetine, gabapentin, vitamin D3, vitamin C, milk thistle seed, levothyroxine, methotrexate, folic acid, progesterone, estradiol. PQRS: 1. She has a history of diffuse osteoarthritis as well as differential arthritis, treated with methotrexate. 2. Height is 5 feet 3 inches, weight is 134, BMI is 23. 3. Vital signs; blood pressure 122/76, pulse is 66, respirations 14, oxygen sat is 96. 4. Pain is 0-8 depending on the time of day. 5. Denies dizziness, does not need help walking or standing, has not fallen in the last 3 months. 6. The patient is not on any blood thinners, but does take medicine for hypertension. 7. Opioid therapy is greater than 6 weeks; therefore, an opioid signed contract [address] [address] PAIN MANAGEMENT CONSULTATION Name: NICOLA ANGEL Room #: REG [facility].#: [id number] Admission: 03/09/20 Attend Phys: Deyanira Cummings Discharge: Date of : 42 Report #: [id number] is on the chart. Risk assessment is moderate. Functional assessment is 32/70. 8. Recreational drug use, she denies. She is a current smoker of 1-pack of cigarettes a day and does drink wine daily. According to the prescription monitoring system, the patient is filling appropriately. Her morphine milliequivalent according to the CDC guidelines is 70 MME's per day. We will check a random drug screen on her at her next visit. PHYSICAL EXAMINATION: GENERAL: This is alert and orientated 79-year-old female who appears her stated age, placing her current pain score from 0-8 today. HEENT: Normocephalic, atraumatic. Extraocular eye muscles are intact. She is wearing a mask. MUSCULOSKELETAL: Pain is in her lumbosacral region that radiates down her left buttock, into her left leg following the L5-S1 dermatomal distribution. Her lower extremity strength is symmetrical at 5/5. She does use a cane at all times. She has a slightly antalgic gait. IMPRESSION: 1. Chronic intractable low back pain, post-laminectomy syndrome. 2. Failed spinal cord stimulator. 3. Osteoarthritis. 4. Differential arthritis. 5. Status post bilateral hip replacement. 6. Chronic opioid medications under terms of written agreement. We reviewed the fact that opiate medications are being used to provide analgesia adequate to support activities of daily living, not attempting to achieve a specific pain score on the 0-10 Visual Analog Scale. The current opiate medications are providing sufficient analgesia to allow the patient to participate in activities of daily living. The patient is not exhibiting any aberrant behavior suggestive of drug diversion. The patient is not having any adverse reactions to medications. The patient is not suffering from daytime somnolence or mental acuity changes. The patient is managing opiate-induced constipation with appropriate [id number] agents and dietary considerations. The patient was counseled on concern for caution with operating a motor vehicle while using opiate medications. PLAN: 1. We discussed treatment options with the patient today. I explained to her that we would like to keep her on her current regimen for several more months. She has had several changes in the last few months with her regimen and we would like to continue where it is. At times, she does have 0 pain. In the morning upon rising her pain is an 8. We discussed how she takes her medications and she will alter her hydrocodone to take it either upon arising first thing in the morning, have it at her bed side or take it as soon as she gets up, allow that [address] [place] [address] PAIN MANAGEMENT CONSULTATION Name: NICOLA ANGEL Room #: REG [facility] Larry#: [id number] Admission: 03/09/20 Attend Phys: Deyanira Cummings Discharge: Date of : 44 Report #: [id number] medication to work, then take her morphine slightly later in the morning, not taking all of her medications at the same time. The patient verbalizes understanding. 2. Scripts will be sent electronically by Dr. Pavon for MS Contin 30 mg b.i.d., #60 for today and 4-week supply and hydrocodone 5/325, #45 again for 2 months. This allows her one tablet every day and 2 on Sundays for her more painful days when she is more active and working in the yard. 3. The patient is seen in collaboration with Dr. Patrick Pavon. By: 1438 [id number] Deyanira Cummings /nt
[2020-03-09 13:28] VITALS: BP 122/76
--- NOTE | 2020-03-09 13:37 | NUR ---
Pain Clinic Assessment: 1. History of Osteoarthritis: B/L HANDS B/L ANKLES B/L HIPS SPINE History of Rheumatoid Arthritis: DENIES 2. Height: 5 ft. 3 in. 160.0 cm. Weight: 134.0 lb. oz. 60.782 kg. Patient's BMI: 23.7 3. Vital Signs: BP: 122/76 Pulse: 66 Resp: 14 Temp: 02 Sat: 96 ECG Mon: 4. Pain Intensity: 8 IN AM 0 IN PM 5. Fall Risk: Dizziness: N Needs help standing or walking: N Fallen in the last 3 months: N Fall risk comments: HOME HEALTH PHYSICAL THERAPY FOR BALANCE 6. Patient on Blood Thinner: None 7. History of Hypertension: Y 8. Opioid Therapy greater than 6 weeks: Y Opiate Contract Signed: 09/03/18 9. Risk Assessment Tool Provided: 10. Functional Assessment Tool: 11. Recreational Drug Use: Never Drug Type: Tobacco Use: Current Every Day Smoker Tobacco Type: Cigarettes Amount or Packs/day: 1 How Many Years: 50 Alcohol Use: Yes Frequency: Daily Quant: WINE- 1 A DAY
== END ==
LOC: PAIN 02-08 10:44
PROVIDERS: ATTEND Clinical Nurse Specialist Adult Health
DX: M47.816 Spondylosis without myelopathy or radiculopathy, lumbar region (principal); M96.1 Postlaminectomy syndrome, not elsewhere classified; G89.29 Other chronic pain; M19.90 Unspecified osteoarthritis, unspecified site; F11.20 Opioid dependence, uncomplicated; Z96.643 Presence of artificial hip joint, bilateral

== ENCOUNTER → 2020-04-17 | Outpatient (CLI) | payer OTHER ==
[~2020-04-17] VITALS: Ht 165.1 cm; Wt 51.3 kg
[~2020-04-17] MED LIST changes: +CYMBALTA60 MG PO
[2020-04-17 11:26] VITALS: BP 116/79
--- NOTE | 2020-04-17 14:47 | NUR ---
Pain Clinic Assessment: 1. History of Osteoarthritis: B/L HANDS B/L ANKLES B/L HIPS SPINE History of Rheumatoid Arthritis: DENIES 2. Height: 5 ft. 5 in. 165.1 cm. Weight: 113.0 lb. oz. 51.256 kg. Patient's BMI: 18.8 3. Vital Signs: BP: 116/79 Pulse: 85 Resp: 16 Temp: 02 Sat: 94 ECG Mon: 4. Pain Intensity: 8 5. Fall Risk: Dizziness: N Needs help standing or walking: N Fallen in the last 3 months: N Fall risk comments: HOME HEALTH PHYSICAL THERAPY FOR BALANCE 6. Patient on Blood Thinner: None 7. History of Hypertension: Y 8. Opioid Therapy greater than 6 weeks: Y Opiate Contract Signed: 09/03/18 9. Risk Assessment Tool Provided: 10. Functional Assessment Tool: 11. Recreational Drug Use: Never Drug Type: Tobacco Use: Current Every Day Smoker Tobacco Type: Amount or Packs/day: How Many Years: Alcohol Use: Yes Frequency: Daily Quant: 1-WINE
--- NOTE | 2020-04-18 08:57 | HPC ---
[facility] [address] [place] [address] PAIN MANAGEMENT CONSULTATION Name: NICOLA ANGEL Room #: REG MAC Juarez#: [id number] Admission: 04/17/20 Attend Phys: Deyanira Cummings Discharge: Date of : 44 Report #: [id number] CC: Deyanira Cortez DATE OF SERVICE: 04/17/2020 CHIEF COMPLAINT: 1. Post-laminectomy syndrome. 2. Lumbar spondylosis and radiculopathy. HISTORY OF PRESENT ILLNESS: This is a very pleasant 79-year-old female who returns to the pain clinic today for renewal of her opioid medications and to discuss a possible radiofrequency ablation in her lower back. She has had medial branch blocks earlier this year that were beneficial in controlling her pain affording her 100% relief for at least 4 hours, at her left L5 dorsal ramus and L4 medial branch blocks. The patient would like to schedule that procedure this month. We had postponed radiofrequency due to the COVID virus outbreak earlier in the year. Today, the patient is stating that her pain score is an 8 in the morning upon awakening, then she does take her medications and reports 0 pain score in the evening. Today, she is reporting that her pain is located in her low back down her left buttock into her leg. It is an aching soreness. She feels that mornings are worse. She does use her medication, as well as a brace and exercises that she has been taught through physical therapy and feels that this is helping decrease her pain. She denies any problems with daytime somnolence or constipation as a result of her morphine and hydrocodone. ALLERGIES: CODEINE AND FENTANYL. PATIENT'S MEDICATIONS: Morphine sulfate 30 mg b.i.d., hydrocodone 5/325 p.r.n., Cymbalta 60 and Cymbalta 20 mg daily, buspirone b.i.d., gabapentin, vitamin D, vitamin C, milk thistle, levothyroxine, methotrexate, folic acid, progesterone, and Estrace. PATIENT'S PQRS: 1. She has osteoarthritic changes in her hands, ankles, hips and spine. She has differential arthritis and treated with methotrexate. Height is 5 feet 3 inches, weight is 113, BMI is 18. 2. Vital signs, 116/79, pulse is 85, respirations 16, oxygen sat is 94%. 3. Pain score is 8/10. 4. Denies dizziness, does not need help walking or standing, does use a cane at times, but not using this currently. The patient has not fallen in the last 3 months. 5. The patient is not on any blood thinners, but does take medicine for hypertension. Her opioid therapy is greater than 6 weeks; therefore, an opioid signed contract was on the chart. Risk assessment is moderate. Functional assessment is 32/70. 6. Recreational drug use, she denies. She is a current smoker and does drink alcohol. According to the prescription monitoring systems, she is filling appropriately. PHYSICAL EXAMINATION: GENERAL: This is an alert and orientated 79-year-old female, who appears her stated age, placing her current pain score from 0 to 8. HEENT: Normocephalic, atraumatic. Extraocular eye muscles are intact. Mucous membranes are moist. MUSCULOSKELETAL: She has pain in the lumbosacral region that does radiate into her left buttock today and occasionally down her left leg. She has a slow antalgic gait. Her lower extremity strength judged to be symmetrical at 5/5 in all major muscle groups. Pain is increased with lumbar provocation testing in her low back. IMPRESSION: 1. Facet arthroscopy. 2. Lumbar spondylosis. 3. Failed spinal cord stimulator therapy. 4. Osteoarthritis and differential arthritis. 5. Management of high risk medications under terms of written opioid agreement. We reviewed the fact that opiate medications are being used to provide analgesia adequate to support activities of daily living, not attempting to achieve a specific pain score on the 0-10 Visual Analog Scale. The current opiate medications are providing sufficient analgesia to allow the patient to participate in activities of daily living. The patient is not exhibiting any aberrant behavior suggestive of drug diversion. The patient is not having any adverse reactions to medications. The patient is not suffering from daytime somnolence or mental acuity changes. The patient is managing opiate-induced constipation with appropriate bnlp-gzi-vepoqdx agents and dietary considerations. The patient was counseled on concern for caution with operating a motor vehicle while using opiate medications. A physical exam was performed and the patient's functional status was evaluated. All patients with back pain were advised against the bed rest greater than 4 days and were advised to return to normal activities. Pain score assessment was noted and the treatment plan was reviewed with the patient. All current medications, both prescribed and OTC were reviewed and reconciled on the electronic medical record. Tobacco screening was accomplished and smoking cessation was advised when indicated. BMI was noted and diet/exercise modification was recommended for all patients following outside normal parameters. I reviewed with the patient today their responsibilities to safeguard prescription medications, reviewed their responsibility to utilize medications only as prescribed by the physician. They are to seek and receive pain medications only from 1 physician group ( [facility]). They are to use 1 pharmacy and keep the clinic informed if they change pharmacies. Their responsibilities include making followup visits in a timely fashion and to avoid abrupt discontinuation of medication usage. Their responsibilities further include bringing their medications (bottles from the pharmacy with residual pills) to the visit for possible confirmation of pill counts and the patient understands it is their responsibility to submit to random drug screens to ensure both that the medications prescribed are present, and that no other controlled substances are present. All prescriptions provided today were generated electronically. PLAN: 1. We discussed treatment options with the patient today. According to the records of the prescription monitoring, the patient has a prescription at the pharmacy and is not needing meds currently today. We will send these electronically to be filled 05/15 and 06/12; therefore, she will not need opioid medications from Dr. Pavon until the end of June. We will send MS Contin 30 mg b.i.d. #60 and hydromorphone 5/325, #45. 2. We did discuss the possibility of radiofrequency ablationing. She had 100% relief for at least 4 hours from her previous medial branch blocks, we will schedule her this month to have the left lower back at L4 medial branch and L5 dorsal rami. Procedure done by Dr. Patrick Pavon. 3. The patient is seen today in collaboration with Dr. Patrick Pavon who did see the patient as well. <ELECTRONICALLY SIGNED> By: Deyanira Cummings 04/18/20 0857 [id number] Deyanira Cummings /nt
== END ==
LOC: PAIN 07:04
PROVIDERS: ATTEND Clinical Nurse Specialist Adult Health
DX: M47.26 Other spondylosis with radiculopathy, lumbar region (principal); Z79.899 Other long term (current) drug therapy; Z79.891 Long term (current) use of opiate analgesic

== ENCOUNTER → 2020-05-08 | Outpatient (CLI) | payer OTHER ==
[~2020-05-08] VITALS: Ht 165.1 cm; Wt 61.1 kg
[2020-05-08 09:26] VITALS: BP 136/84
--- NOTE | 2020-05-08 09:34 | NUR ---
Pain Clinic Assessment: 1. History of Osteoarthritis: B/L HANDS B/L ANKLES B/L HIPS SPINE History of Rheumatoid Arthritis: DENIES 2. Height: 5 ft. 5 in. 165.1 cm. Weight: 134.8 lb. oz. 61.145 kg. Patient's BMI: 22.4 3. Vital Signs: BP: 136/84 Pulse: 76 Resp: 14 Temp: 02 Sat: 97 ECG Mon: 4. Pain Intensity: 4-5 5. Fall Risk: Dizziness: N Needs help standing or walking: Y Fallen in the last 3 months: N Fall risk comments: HOME HEALTH PHYSICAL THERAPY FOR BALANCE 6. Patient on Blood Thinner: None 7. History of Hypertension: Y 8. Opioid Therapy greater than 6 weeks: Y Opiate Contract Signed: 09/03/18 9. Risk Assessment Tool Provided: 10. Functional Assessment Tool: 11. Recreational Drug Use: Never Drug Type: Tobacco Use: Current Every Day Smoker Tobacco Type: Cigarettes Amount or Packs/day: 1 PACK How Many Years: 50 Alcohol Use: Yes Frequency: Quant:
== END | disposition home or self-care (01) ==
LOC: PAIN 06:45
PROVIDERS: ATTEND Anesthesiology Pain Medicine
DX: M47.816 Spondylosis without myelopathy or radiculopathy, lumbar region (principal); G89.29 Other chronic pain; F17.210 Nicotine dependence, cigarettes, uncomplicated; Z98.890 Other specified postprocedural states; Z79.899 Other long term (current) drug therapy; Z88.8 Allergy status to other drugs, medicaments and biological substances

== ENCOUNTER → 2020-07-03 | Outpatient (CLI) | payer OTHER ==
[~2020-07-03] VITALS: Ht 165.1 cm; Wt 61.1 kg
[2020-07-03 12:39] VITALS: BP 144/93
--- NOTE | 2020-07-03 12:49 | NUR ---
Pain Clinic Assessment: 1. History of Osteoarthritis: B/L HANDS B/L ANKLES B/L HIPS SPINE History of Rheumatoid Arthritis: DENIES 2. Height: 5 ft. 5 in. 165.1 cm. Weight: 134.8 lb. oz. 61.145 kg. Patient's BMI: 22.4 3. Vital Signs: BP: 144/93 Pulse: 98 Resp: 16 Temp: 02 Sat: 97 ECG Mon: 4. Pain Intensity: 0 5. Fall Risk: Dizziness: N Needs help standing or walking: Y Fallen in the last 3 months: N Fall risk comments: HOME HEALTH PHYSICAL THERAPY FOR BALANCE 6. Patient on Blood Thinner: None 7. History of Hypertension: Y 8. Opioid Therapy greater than 6 weeks: Y Opiate Contract Signed: 09/03/18 9. Risk Assessment Tool Provided: 10. Functional Assessment Tool: 11. Recreational Drug Use: Never Drug Type: Tobacco Use: Current Every Day Smoker Tobacco Type: Cigarettes Amount or Packs/day: How Many Years: Alcohol Use: Yes Frequency: Quant:
--- NOTE | 2020-07-04 15:26 | HPC ---
[facility] [address] [address] PAIN MANAGEMENT CONSULTATION Name: NICOLA ANGEL Room #: REG JIMAj Juarez#: [id number] Admission: 07/03/20 Attend Phys: Deyanira Cummings Discharge: Date of : 42 Report #: [id number] THIS REPORT FOR: cc: Ivy Cortez MD, Rebecca A. MD Hocker,Deyanira Allen DATE OF SERVICE: 07/03/2020 CHIEF COMPLAINT: Post-laminectomy syndrome, lumbar spondylosis and radiculopathy. HISTORY OF PRESENT ILLNESS: This is a very pleasant 79-year-old female who returns to the pain clinic today for refill of her medications. Today, she is reporting a pain score of 0/10 currently. She does report that her pain is worse upon awakening in the morning. At that time, she does utilize hydrocodone 1-2 tablets and finds it very beneficial to start her day. She continues her morphine twice a day as well. She reports that most of her pain is in her lower back and left buttock. It is beneficial when she sits and lies down as well. Currently, she denies any daytime somnolence or significant constipation that is not relieved with jqfr-nmi-krkgqdn medications. The patient has reported to us that she has been having urinary retention issues. She has recently self-cathed herself for 2 weeks and has seen a urologist again later this week to discuss a possible bladder stimulator. She is wondering her thoughts on that device and if she should proceed with having the trial. ALLERGIES: CODEINE AND FENTANYL. MEDICATIONS: MS Contin 30 mg b.i.d., hydrocodone 5/325 p.r.n., Cymbalta 60 mg, Cymbalta 20 mg, buspirone, gabapentin 800 mg, vitamin D, vitamin C, milk thistle extract, Synthroid, methotrexate, folic acid, progesterone and estradiol. PQRS: 1. She has osteoarthritic changes in her hands, ankles, hips and spine and is being treated for differential arthritis with methotrexate as well. 2. Height is 5 feet 5 inches, weight is 134, BMI is 22. 3. Vital signs 144/93, pulse is 88, respirations 16, oxygen sat is 97. 4. Pain score 0/10. 5. Denies dizziness. Does need assistance with ambulation, uses a cane. 6. Has not fallen in the last 3 months. 7. The patient is not on any blood thinners, but does take medicine for hypertension. Her opioid therapy is greater than 6 weeks; therefore, an opioid signed contract is on the chart. Risk assessment is moderate. Functional assessment is 22/70. 8. Recreational drug use, she denies. She currently smokes cigarettes and [address] [address] PAIN MANAGEMENT CONSULTATION Name: NICOLA ANGEL Danial Room #: REG MAC Juarez#: [id number] Admission: 07/03/20 Attend Phys: Deyanira Cummings Discharge: Date of : 42 Report #: [id number] alcohol use. According to the prescription monitoring system, her morphine milliequivalent according to the CDC guidelines is 65-70 morphine milliequivalents per day. PHYSICAL EXAMINATION: GENERAL: This is alert and orientated, well-developed, well-nourished 79-year-old female who appears her stated age, placing her current pain score of 0/10 today. HEENT: Normocephalic, atraumatic. Extraocular eye muscles are intact. Mucous membranes are moist. MUSCULOSKELETAL: She has tenderness and pain in her lumbosacral region that radiates into her left buttock with no radicular symptoms present today. She has a slow antalgic gait and uses a cane for ambulation. Lumbar provocation testing increases her pain in her lumbar region. Her lower extremity strength is symmetrical at 5/5. IMPRESSION: 1. Facet arthroscopy. 2. Lumbar spondylosis. 3. Failed spinal cord stimulator. 4. Osteoarthritis and differential arthritis. 5. Management of high risk medications. We reviewed the fact that opiate medications are being used to provide analgesia adequate to support activities of daily living, not attempting to achieve a specific pain score on the 0-10 Visual Analog Scale. The current opiate medications are providing sufficient analgesia to allow the patient to participate in activities of daily living. The patient is not exhibiting any aberrant behavior suggestive of drug diversion. The patient is not having any adverse reactions to medications. The patient is not suffering from daytime somnolence or mental acuity changes. The patient is managing opiate-induced constipation with appropriate uduu-xkr-kernmvc agents and dietary considerations. The patient was counseled on concern for caution with operating a motor vehicle while using opiate medications. A physical exam was performed and the patient's functional status was evaluated. All patients with back pain were advised against the bed rest greater than 4 days and were advised to return to normal activities. Pain score assessment was noted and the treatment plan was reviewed with the patient. All current medications, both prescribed and OTC were reviewed and reconciled on the electronic medical record. Tobacco screening was accomplished and smoking cessation was advised when indicated. BMI was noted and diet/exercise modification was recommended for all patients following outside normal parameters. [address] [address] PAIN MANAGEMENT CONSULTATION Name: NICOLA ANGEL Room #: REG [facility]#: [id number] Admission: 07/03/20 Attend Phys: Deyanira Cummings Discharge: Date of : 42 Report #: [id number] I reviewed with the patient today their responsibilities to safeguard prescription medications, reviewed their responsibility to utilize medications only as prescribed by the physician. They are to seek and receive pain medications only from 1 physician group ( [facility]). They are to use 1 pharmacy and keep the clinic informed if they change pharmacies. Their responsibilities include making followup visits in a timely fashion and to avoid abrupt discontinuation of medication usage. Their responsibilities further include bringing their medications (bottles from the pharmacy with residual pills) to the visit for possible confirmation of pill counts and the patient understands it is their responsibility to submit to random drug screens to ensure both that the medications prescribed are present, and that no other controlled substances are present. All prescriptions provided today were generated electronically. PLAN: 1. We discussed treatment options with the patient today. According to our records and the prescription monitoring system, the patient should have one prescription left to fill at the pharmacy. The patient informed us that the pharmacy would not fill her prescription and she did go without her morphine for more than a week, utilizing her breakthrough pain medicine to get by. We did call the pharmacist there is a prescription on file which they will fill for this patient. We instructed the patient to ask for electronically sent prescriptions when asking for refills that may be where the confusion was. Scripts will be sent by Dr. Pavon for 4-week release and 8-week release of her medications. We did discuss the possibility of repeating her radiofrequency ablation. She did not have very prolonged relief from this procedure. According to Dr. Patrick Pavon, he would consider retrying this procedure in at least 3 months' intervals. 2. The patient is to go for an implantable stimulator due to urinary retention. I encouraged her to have the trial and if beneficial have the implant prior to having any procedure done by Dr. Pavon. The patient is seen today in collaboration with Dr. Pavon who did see the patient as well. <ELECTRONICALLY SIGNED> By: Deyanira Cummings 07/04/20 1526 [id number] Deyanira Cummings /nt
== END ==
LOC: PAIN 06:51
PROVIDERS: ATTEND Clinical Nurse Specialist Adult Health
DX: M47.26 Other spondylosis with radiculopathy, lumbar region (principal); M96.1 Postlaminectomy syndrome, not elsewhere classified; M19.90 Unspecified osteoarthritis, unspecified site; F11.20 Opioid dependence, uncomplicated

== ENCOUNTER → 2020-08-03 | Outpatient (CLI) | payer OTHER ==
[~2020-08-03] VITALS: Ht 165.1 cm; Wt 62.1 kg
[~2020-08-03] MED LIST changes: +MORPHINE SULFAT15 MG PO; +OXYCODONE-ACET1 EACH PO; +TIZANIDINE HCL4 M2 PO
--- NOTE | ~2020-08-03 | HPC ---
[facility] [address] [place] [address] PAIN MANAGEMENT CONSULTATION Name: NICOLA ANGEL Room #: REG MAC Larry#: [id number] Admission: 08/03/20 Attend Phys: Deyanira Cummings Discharge: Date of : 44 Report #: [id number] THIS REPORT FOR: cc: Ivy Cortez MD, Rebecca A. MD Hocker,Deyanira Allen DATE OF SERVICE: 08/03/2020 CHIEF COMPLAINT: Post-laminectomy syndrome, lumbar spondylosis and radiculopathy. HISTORY OF PRESENT ILLNESS: This is a pleasant 79-year-old female who returns today to the pain clinic to discuss her opioid medications. She continues to have ongoing low back pain and left buttock pain, rating her pain score at 5/10. Her pain is worse in the mornings especially after she gets out of bed and with walking. She reports her medication has usually been beneficial, though recently and has not been; therefore, she found some old oxycodone at home. She had taken that in the middle portion of the day and found her pain was better relieved. So therefore, she is wondering if she may go back to that medication. The patient is here to discuss altering her medications before she is due to fill her medications next week. The patient is scheduled to have a bladder stimulator trial on 08/18/2019. She is hopeful that will help some of her back pain that she experiences from having a full bladder, but understands that she is having first a trial to see if that is beneficial. ALLERGIES: CODEINE AND FENTANYL. CURRENT LIST OF MEDICATIONS: Tizanidine p.r.n., gabapentin 800 mg q.i.d., MS Contin 30 mg b.i.d., hydrocodone 5/325 b.i.d. p.r.n., Cymbalta 80 mg daily, buspirone, vitamin D, ascorbic acid, milk thistle, Synthroid, methotrexate, folic acid, progesterone, and estradiol. PQRS: 1. She has arthritic changes in her hands, ankles, hips and spine and is also being treated for differential arthritis with methotrexate. 2. Height is 5 feet 5 inches, weight is 137, BMI is 22. 3. Vital signs 143/89, pulse is 110, respirations 20, oxygen sat is 100. 4. Pain score is 5/10. 5. Denies dizziness. The patient is using a cane occasionally for ambulation, has not fallen in the last 3 months. 6. The patient is not on any blood thinners, but does take medicine for hypertension. 7. Opioid therapy is greater than 6 weeks; therefore, an opioid signed contract is on the chart. Risk assessment is moderate. [place] [address] PAIN MANAGEMENT CONSULTATION Name: NICOLA ANGEL Danial Room #: REG MAC Juarez#: [id number] Admission: 08/03/20 Attend Phys: Deyanira Cummings Discharge: Date of : 44 Report #: [id number] 8. Recreational drug use, she denies. She is a current smoker and does drink a glass of alcohol daily per her report when questioned. According to the prescription monitoring system, the patient is filling appropriately. She is due to fill her medications on Friday. Her morphine mEq according to the CDC guidelines is 70 MME. PHYSICAL EXAMINATION: GENERAL: This is alert and orientated, tearful, 79-year-old female who appears her stated age, placing her current pain score today at 5/10. HEENT: Normocephalic, atraumatic. Extraocular eye muscles are intact. She is wearing a mask. MUSCULOSKELETAL: She has tenderness in her lumbosacral region that radiates into her right buttock, but not into her legs today. She has an antalgic gait. Complains of lower abdominal pelvic pain. Lower extremity strength is symmetrical at 5/5. IMPRESSION: 1. Facet arthroscopy. 2. Lumbar spondylosis. 3. Failed spinal cord stimulator. 4. Osteoarthritis and differential arthritis. 5. Management of high risk medications. 6. Depression and anxiety. PLAN: 1. We discussed treatment options for greater than 30 minutes today. According to our records, she has been taking MS Contin and hydrocodone equivalent to 70 morphine milliequivalents. In the past, the patient had been on OxyContin, not oxycodone, short-acting and I informed the patient that what she had taken at home was a long-acting medication, which she is currently also on a long-acting with morphine. After much discussion, it was determined that she will bring those medications and to be destroyed and we will start her on oxycodone short-acting medication and see if that is beneficial in helping relieve her breakthrough pain that she experiences later in the day. 2. We will send medications for 1 month of MS Contin 15 mg tablets, the patient to take 2 in the morning and 1 at bedtime. She does have more substantial pain upon awakening in the morning; therefore, her higher dose in the morning upon awakening. 3. We will transition her from hydrocodone to oxycodone 5/325, enabling her up to 3 tablets a day, quantity 90 will be sent. This will make her total morphine mEq to 67 MME slightly lower than she was on before and hopefully will afford her better pain control. 4. We did take the liberty of calling her [facility] and discontinuing all of her prescriptions that are on file for other opioids. 5. The patient has been tearful throughout this visit. She reports her primary [facility] [address] [place] [address] PAIN MANAGEMENT CONSULTATION Name: NICOLA ANGEL Room #: REG MAC Juarez#: [id number] Admission: 08/03/20 Attend Phys: Deyanira Cummings Discharge: Date of : 44 Report #: [id number] care doctor is not willing to provide her with alprazolam that she had taken in the past for sleep, though at times she does suffer from significant anxiety. I did encourage her to see a psychiatrist that she had seen in the past for her anxiety issues. 6. The patient is scheduled for her bladder stimulator before our next visit, we are hopeful with the aid of that device as well as her changes in opioids, her pain will be decreased. Follow up planned in 1 month. Care was discussed with Dr. Patrick Pavon and collaborated today. 7. The patient is seen for greater than 30 minutes today in discussion. By: [id number] Deyanira Cummings /nt
[2020-08-03 14:58] VITALS: BP 143/89
--- NOTE | 2020-08-03 15:09 | NUR ---
Pain Clinic Assessment: 1. History of Osteoarthritis: B/L HANDS B/L ANKLES B/L HIPS SPINE History of Rheumatoid Arthritis: DENIES 2. Height: 5 ft. 5 in. 165.1 cm. Weight: 137.0 lb. oz. 62.143 kg. Patient's BMI: 22.8 3. Vital Signs: BP: 143/89 Pulse: 110 Resp: 20 Temp: 02 Sat: 100 ECG Mon: 4. Pain Intensity: 5 5. Fall Risk: Dizziness: N Needs help standing or walking: Y Fallen in the last 3 months: N Fall risk comments: HOME HEALTH PHYSICAL THERAPY FOR BALANCE 6. Patient on Blood Thinner: None 7. History of Hypertension: Y 8. Opioid Therapy greater than 6 weeks: Y Opiate Contract Signed: 09/03/18 9. Risk Assessment Tool Provided: 10. Functional Assessment Tool: 11. Recreational Drug Use: Never Drug Type: Tobacco Use: Current Every Day Smoker Tobacco Type: Cigarettes Amount or Packs/day: 0.5 How Many Years: 50 Alcohol Use: Yes Frequency: Daily Quant:
== END ==
LOC: PAIN 07:08
PROVIDERS: ATTEND Clinical Nurse Specialist Adult Health
DX: M47.26 Other spondylosis with radiculopathy, lumbar region (principal); M96.1 Postlaminectomy syndrome, not elsewhere classified; F41.8 Other specified anxiety disorders; M19.90 Unspecified osteoarthritis, unspecified site; F11.20 Opioid dependence, uncomplicated; Z88.8 Allergy status to other drugs, medicaments and biological substances; Z79.899 Other long term (current) drug therapy

== ENCOUNTER → 2020-08-28 | Outpatient (CLI) | payer OTHER ==
[~2020-08-28] VITALS: Ht 160 cm; Wt 61.2 kg
[~2020-08-28] MED LIST changes: +ENDOCET 5-3251 EACH PO
[2020-08-28 11:14] VITALS: BP 131/91
--- NOTE | 2020-08-28 11:20 | NUR ---
Pain Clinic Assessment: 1. History of Osteoarthritis: B/L HANDS B/L ANKLES B/L HIPS SPINE History of Rheumatoid Arthritis: DENIES 2. Height: 5 ft. 3 in. 160.0 cm. Weight: 135.0 lb. oz. 61.236 kg. Patient's BMI: 23.9 3. Vital Signs: BP: 131/91 Pulse: 89 Resp: 16 Temp: 02 Sat: 97 ECG Mon: 4. Pain Intensity: 0 5. Fall Risk: Dizziness: N Needs help standing or walking: Y Fallen in the last 3 months: N Fall risk comments: HOME HEALTH PHYSICAL THERAPY FOR BALANCE 6. Patient on Blood Thinner: None 7. History of Hypertension: Y 8. Opioid Therapy greater than 6 weeks: Y Opiate Contract Signed: 09/03/18 9. Risk Assessment Tool Provided: 10. Functional Assessment Tool: 11. Recreational Drug Use: Never Drug Type: Tobacco Use: Current Every Day Smoker Tobacco Type: Amount or Packs/day: How Many Years: Alcohol Use: Yes Frequency: Quant:
--- NOTE | 2020-08-29 08:37 | HPC ---
[facility] [address] [place] [address] PAIN MANAGEMENT CONSULTATION Name: NICOLA ANGEL Room #: REG MAC Larry#: [id number] Admission: 08/28/20 Attend Phys: Deyanira Cummings Discharge: Date of : 44 Report #: [id number] THIS REPORT FOR: cc: Ivy Cortez MD, Rebecca A. MD Hocker,Deyanira Allen DATE OF SERVICE: 08/28/2020 CHIEF COMPLAINT: Post-laminectomy syndrome, lumbar spondylosis, and radiculopathy. HISTORY OF PRESENT ILLNESS: This is a 79-year-old female, who returns to the pain clinic today for renewal of her medications. Today, she is doing quite well per her report. Denying any pain in her lower back. She believes the current regimen that she is on for opioid management is doing quite well in managing her low back, left buttock pain. She states that she also has her bladder stimulator trial unit on and believes that is helping with some of her low back pain as well. She states that her bladder was very full when they started the trial and now that it is emptied on a regular basis, she believes that has helped her back pain as well. She is scheduled to have the permanent bladder stimulator placed on . The patient is looking forward to gardening this spring and hopes that she will continue to have good pain relief on her current regimen. She denies any daytime somnolence or constipation as a result of her medications. The patient reports she is going to have her second COVID vaccine on Friday. She had no side effects from her first injection. ALLERGIES: CODEINE AND FENTANYL. CURRENT LIST OF MEDICATIONS: Oxycodone 5/325 up to 3 times a day, morphine sulfate 15 mg t.i.d., tizanidine, gabapentin, duloxetine, buspirone, vitamin D, vitamin C, milk thistle extract, Synthroid, methotrexate, folic acid, progesterone and Estrace. PQRS: 1. She has a history of osteoarthritic changes in her hips, spine, hands and ankles. She is also being treated for differential arthritis. 2. Height is 5 feet 3 inches, weight is 135, BMI is 23. 3. Vital signs 131/91, pulse is 89, respirations 16, oxygen sat is 97%. 4. Pain score 0/10. 5. Denies dizziness. Does not use a cane or a walker for ambulation. The patient has not fallen in the last 3 months. 6. The patient is not on any blood thinners, but she does take medicine for hypertension. Her opioid therapy is greater than 6 weeks; therefore, an opioid signed contract is on the chart. Risk assessment [place] [address] PAIN MANAGEMENT CONSULTATION Name: NICOLA ANGEL Room #: REG MAC Juarez#: [id number] Admission: 08/28/20 Attend Phys: Deyanira Cummings Discharge: Date of : 44 Report #: [id number] assessment is . 7. Recreational drug use, she denies. She is a current smoker and does drink alcohol. According to the prescription monitoring system, the patient is due to fill her medications later this week. Morphine mEq is equivalent to 65 MME per day. PHYSICAL EXAMINATION: GENERAL: This is alert and orientated, well-developed, well-nourished 79-year-old female, who appears her stated age, placing her current pain score at 0/10 today. HEENT: Normocephalic, atraumatic. Extraocular eye muscles are intact. Mucous membranes are moist. She is wearing a mask. MUSCULOSKELETAL: The patient has tenderness in the low back that radiates into her left buttock. Her lower extremity strength is symmetrical at 5/5. She does utilize a cane. She currently has a battery packed in her lower back for her bladder stimulator. IMPRESSION: 1. Lumbar spondylosis. 2. Failed spinal cord stimulator. 3. Facet arthroscopy. 4. Osteoarthritis and differential arthritis. 5. Complicated medication management of high risk medications under opioid agreement. PLAN: 1. We discussed treatment options with the patient today. The patient is hopeful that the permanent bladder stimulator will be as beneficial as her temporary one. She reports being able to sleep all night. She feels like she has less back pain since she has been utilizing the trial of the bladder stimulator. Her surgery is set for . We will continue her on her MS Contin 15 mg 2 tablets in the morning and 1 at night, #90 and oxycodone 5/325, 90 tablets as well. This will be released 08/31 and 09/28 and sent electronically by Dr. Patrick Pavon. We did discuss possible decrease in her oxycodone pills if her bladder stimulator does continue to help with her discomfort. 2. The patient is having her COVID vaccine on Friday. I did encourage her to verify with her surgeon that is fine to have the vaccine close to her surgery date. We also discussed possible side effects and to utilize Tylenol and heat or ice if need be. Time spent with the patient in consultation, reviewing clinical notes and physician reports, physical examination and correlation of physical findings to determine possible treatments is [address] [address] PAIN MANAGEMENT CONSULTATION Name: NICOLA ANGEL [id number] Admission: 08/28/20 Attend Phys: Deyanira Cummings Discharge: Date of : 44 Report #: [id number] Time spent in preparation for appointment reviewing and prescription monitoring reports, reviewing previous records and proposed treatment options and reviewing current medications is 5 minutes. Time spent in preparing and sending electronic prescriptions with collaborated physician, Dr. Patrick Pavon and documentation of visit and plan of treatment is 6 minutes. Total time 31 minutes. <ELECTRONICALLY SIGNED> By: Deyanira Cummings 08/29/20 [id number] Deyanira Cummings /nt
== END ==
LOC: PAIN 10:49
PROVIDERS: ATTEND Clinical Nurse Specialist Adult Health
DX: M47.26 Other spondylosis with radiculopathy, lumbar region (principal); M96.1 Postlaminectomy syndrome, not elsewhere classified; M19.90 Unspecified osteoarthritis, unspecified site; F11.20 Opioid dependence, uncomplicated; Z88.8 Allergy status to other drugs, medicaments and biological substances; Z79.899 Other long term (current) drug therapy

== ENCOUNTER → 2020-10-30 | Outpatient (CLI) | payer OTHER ==
[~2020-10-30] VITALS: Ht 160 cm; Wt 61.7 kg
[2020-10-30 12:56] VITALS: BP 129/93
--- NOTE | 2020-10-30 13:02 | NUR ---
Pain Clinic Assessment: 1. History of Osteoarthritis: B/L HANDS B/L ANKLES B/L HIPS SPINE History of Rheumatoid Arthritis: DENIES 2. Height: 5 ft. 3 in. 160.0 cm. Weight: 136.0 lb. oz. 61.689 kg. Patient's BMI: 24.1 3. Vital Signs: BP: 129/93 Pulse: 74 Resp: 16 Temp: 02 Sat: 97 ECG Mon: 4. Pain Intensity: 0 5. Fall Risk: Dizziness: N Needs help standing or walking: Y Fallen in the last 3 months: N Fall risk comments: HOME HEALTH PHYSICAL THERAPY FOR BALANCE 6. Patient on Blood Thinner: None 7. History of Hypertension: Y 8. Opioid Therapy greater than 6 weeks: Y Opiate Contract Signed: 09/03/18 9. Risk Assessment Tool Provided: 10. Functional Assessment Tool: 11. Recreational Drug Use: Never Drug Type: Tobacco Use: Current Every Day Smoker Tobacco Type: Cigarettes Amount or Packs/day: 1/2 PACK How Many Years: Alcohol Use: Yes Frequency: Daily Quant: 1
== END ==
LOC: PAIN 10:43
PROVIDERS: ATTEND Clinical Nurse Specialist Adult Health
DX: M47.26 Other spondylosis with radiculopathy, lumbar region (principal); I10 Essential (primary) hypertension; M19.90 Unspecified osteoarthritis, unspecified site; Z79.891 Long term (current) use of opiate analgesic; Z79.899 Other long term (current) drug therapy; Z72.89 Other problems related to lifestyle; Z88.5 Allergy status to narcotic agent

== ENCOUNTER → 2021-01-08 | Outpatient (CLI) | payer OTHER ==
[~2021-01-08] VITALS: Ht 160 cm; Wt 61.2 kg
[2021-01-08 13:47] VITALS: BP 115/77
--- NOTE | 2021-01-08 14:12 | NUR ---
Pain Clinic Assessment: 1. History of Osteoarthritis: B/L HANDS B/L ANKLES B/L HIPS SPINE History of Rheumatoid Arthritis: DENIES 2. Height: 5 ft. 3 in. 160.0 cm. Weight: 135.0 lb. oz. 61.236 kg. Patient's BMI: 23.9 3. Vital Signs: BP: 115/77 Pulse: 96 Resp: 16 Temp: 02 Sat: 97 ECG Mon: 4. Pain Intensity: 0 TO 8 WITH GARDENING 5. Fall Risk: Dizziness: N Needs help standing or walking: N Fallen in the last 3 months: N Fall risk comments: HOME HEALTH PHYSICAL THERAPY FOR BALANCE 6. Patient on Blood Thinner: None 7. History of Hypertension: Y 8. Opioid Therapy greater than 6 weeks: Y Opiate Contract Signed: 09/03/18 9. Risk Assessment Tool Provided: 10. Functional Assessment Tool: 11. Recreational Drug Use: Never Drug Type: Tobacco Use: Current Every Day Smoker Tobacco Type: Cigarettes Amount or Packs/day: 1/2 PK/D How Many Years: Alcohol Use: Yes Frequency: Daily Quant: 2
== END ==
LOC: PAIN 11:16
PROVIDERS: ATTEND Anesthesiology Pain Medicine
DX: M96.1 Postlaminectomy syndrome, not elsewhere classified (principal); M54.16 Radiculopathy, lumbar region; Z79.891 Long term (current) use of opiate analgesic; Z79.899 Other long term (current) drug therapy

== ENCOUNTER → 2021-03-22 | Outpatient (CLI) | payer OTHER ==
[~2021-03-22] VITALS: Ht 160 cm; Wt 63.0 kg
[2021-03-22 12:41] VITALS: BP 146/94
--- NOTE | 2021-03-22 12:44 | NUR ---
Pain Clinic Assessment: 1. History of Osteoarthritis: B/L HANDS B/L ANKLES B/L HIPS SPINE History of Rheumatoid Arthritis: DENIES 2. Height: 5 ft. 3 in. 160.0 cm. Weight: 139.0 lb. oz. 63.050 kg. Patient's BMI: 24.6 3. Vital Signs: BP: 146/94 Pulse: 95 Resp: 16 Temp: 02 Sat: 96 ECG Mon: 4. Pain Intensity: 0 5. Fall Risk: Dizziness: N Needs help standing or walking: N Fallen in the last 3 months: Y Fall risk comments: HOME HEALTH PHYSICAL THERAPY FOR BALANCE 6. Patient on Blood Thinner: None 7. History of Hypertension: Y 8. Opioid Therapy greater than 6 weeks: Y Opiate Contract Signed: 09/03/18 9. Risk Assessment Tool Provided: 10. Functional Assessment Tool: 11. Recreational Drug Use: Never Drug Type: Tobacco Use: Former Smoker Tobacco Type: Amount or Packs/day: How Many Years: Alcohol Use: Yes Frequency: Daily Quant: 2
== END ==
LOC: PAIN 06:53
PROVIDERS: ATTEND Clinical Nurse Specialist Adult Health
DX: M96.1 Postlaminectomy syndrome, not elsewhere classified (principal); M19.90 Unspecified osteoarthritis, unspecified site; Z79.891 Long term (current) use of opiate analgesic; Z79.899 Other long term (current) drug therapy

== ENCOUNTER → 2021-05-21 | Outpatient (CLI) | payer OTHER ==
[~2021-05-21] VITALS: Ht 160 cm; Wt 62.7 kg
[2021-05-21 14:01] VITALS: BP 150/96
--- NOTE | 2021-05-21 14:05 | NUR ---
Pain Clinic Assessment: 1. History of Osteoarthritis: B/L HANDS B/L ANKLES B/L HIPS SPINE History of Rheumatoid Arthritis: DENIES 2. Height: 5 ft. 3 in. 160.0 cm. Weight: 138.2 lb. oz. 62.687 kg. Patient's BMI: 24.5 3. Vital Signs: BP: 150/96 Pulse: 89 Resp: 16 Temp: 02 Sat: 93 ECG Mon: 4. Pain Intensity: 3 5. Fall Risk: Dizziness: N Needs help standing or walking: Y Fallen in the last 3 months: Y Fall risk comments: FELL ON A WET SURFACE/FELL TO LEFT SIDE 6. Patient on Blood Thinner: None 7. History of Hypertension: Y 8. Opioid Therapy greater than 6 weeks: Y Opiate Contract Signed: 09/03/18 9. Risk Assessment Tool Provided: 10. Functional Assessment Tool: 11. Recreational Drug Use: Never Drug Type: Tobacco Use: Former Smoker Tobacco Type: Amount or Packs/day: How Many Years: Alcohol Use: Yes Frequency: Quant:
== END ==
LOC: PAIN 10:44
PROVIDERS: ATTEND Clinical Nurse Specialist Adult Health
DX: G89.29 Other chronic pain (principal); M96.1 Postlaminectomy syndrome, not elsewhere classified; M54.16 Radiculopathy, lumbar region; M19.90 Unspecified osteoarthritis, unspecified site; M54.50 Low back pain, unspecified; Z87.891 Personal history of nicotine dependence; Z88.8 Allergy status to other drugs, medicaments and biological substances; Z79.899 Other long term (current) drug therapy

== ENCOUNTER → 2021-07-12 | Outpatient (CLI) | payer OTHER ==
[~2021-07-12] VITALS: Ht 160 cm; Wt 62.6 kg
[2021-07-12 13:59] VITALS: BP 157/99
--- NOTE | 2021-07-12 14:10 | NUR ---
Pain Clinic Assessment: 1. History of Osteoarthritis: B/L HANDS B/L ANKLES B/L HIPS SPINE History of Rheumatoid Arthritis: DENIES 2. Height: 5 ft. 3 in. 160.0 cm. Weight: 138.0 lb. oz. 62.596 kg. Patient's BMI: 24.5 3. Vital Signs: BP: 157/99 Pulse: 107 Resp: 14 Temp: 02 Sat: 96 ECG Mon: 4. Pain Intensity: 4-5 5. Fall Risk: Dizziness: N Needs help standing or walking: N Fallen in the last 3 months: N Fall risk comments: FELL ON A WET SURFACE/FELL TO LEFT SIDE 6. Patient on Blood Thinner: None 7. History of Hypertension: Y 8. Opioid Therapy greater than 6 weeks: Y Opiate Contract Signed: 09/03/18 9. Risk Assessment Tool Provided: 10. Functional Assessment Tool: 11. Recreational Drug Use: Never Drug Type: Tobacco Use: Former Smoker Tobacco Type: Amount or Packs/day: How Many Years: Alcohol Use: Yes Frequency: Quant:
== END ==
LOC: PAIN 10:45
PROVIDERS: ATTEND Clinical Nurse Specialist Adult Health
DX: G89.29 Other chronic pain (principal); M54.16 Radiculopathy, lumbar region; M96.1 Postlaminectomy syndrome, not elsewhere classified; M19.90 Unspecified osteoarthritis, unspecified site; M47.899 Other spondylosis, site unspecified; Z88.8 Allergy status to other drugs, medicaments and biological substances; Z79.899 Other long term (current) drug therapy